=== PATIENT | male | born 1965 | race Caucasian/White ===

== ENCOUNTER → 2022-04-22 13:22 | Outpatient (BNVA) | payer MEDICAID, SELFPAY | PROVIDERS: Visit Provider Podiatrist Foot & Ankle Surgery | DX: M19.172 Post-traumatic osteoarthritis, left ankle and foot (principal); M62.81 Muscle weakness (generalized) | CPT/HCPCS: 73630 ==

== ENCOUNTER 2022-04-22 15:45 | Outpatient (CLI) | payer MEDICAID, SELFPAY | END 2022-04-22 15:46 | disposition home or self-care (01) | LOC: SPT 15:46 | PROVIDERS: Visit Provider Podiatrist Foot & Ankle Surgery | DX: Z46.89 Encounter for fitting and adjustment of other specified devices (principal); M19.071 Primary osteoarthritis, right ankle and foot | CPT/HCPCS: 97760; L1902 ==

== ENCOUNTER 2022-06-07 11:39 | Outpatient (CLI) | payer MEDICAID, SELFPAY ==
--- NOTE | 2022-06-07 12:01 | MR_ITS ---
WS: [id number] MRI LUMBAR SPINE NONCONTRAST HISTORY: LUMBAR PAIN COMPARISON: None available. TECHNIQUE: Sagittal and axial multisequence imaging is submitted. LEFT paracentral disc protrusion C6-7. Normal lumbar alignment with no compression fractures or marrow edema. Disc spaces and vertebral body heights are well-preserved. Conus terminates normally at L1-2 disc level. L1-L2: Mild annular disc bulging and facet arthritis. Mild bilateral foraminal stenosis. L2-L3: Small caliber central canal. There is mild central and RIGHT foraminal stenosis. Moderate LEFT foraminal stenosis. L3-L4: Mild annular disc bulge with a shallow RIGHT foraminal disc protrusion. Mild central and bilat eral subarticular recess stenosis. Mild to moderate bilateral foraminal stenosis. L4-L5: Small caliber thecal sac. Mild disc bulging and facet arthritis. Near complete effacement of f at in the foramina, moderate to severe LEFT and moderate RIGHT foraminal stenosis. L5-S1: Diffuse annular disc bulging with ligamentum flavum and facet arthritis. Moderate to severe bi lateral foraminal stenosis. Paravertebral soft tissues are normal. MR/MR lumbar spine wo con* [id number] IMPRESSION: 1. Diffuse small thecal sac. Suspect component of short pedicles contributing to the central stenosis. 2. Moderate to severe LEFT and moderate RIGHT foraminal stenosis at L4-5. Sign ificant encroachment upon the exiting L4 nerve roots. 3. Moderate to severe bilateral foraminal stenosis at L5-S1. Significant encro achment upon the exiting L5 nerve roots. 4. Mild central and RIGHT foraminal stenosis at L2-3 with moderate LEFT forami nal stenosis. 5. Multiple moderate bilateral foraminal stenosis at L3-4 with mild central an d bilateral subarticular recess stenosis. Additional shallow RIGHT foraminal di sc protrusion contributing to the stenosis.
== END 2022-06-07 11:40 | disposition home or self-care (01) ==
LOC: RAD 11:43
PROVIDERS: PCP Nurse Practitioner Family; Visit Provider Nurse Practitioner Family
DX: M48.061 Spinal stenosis, lumbar region without neurogenic claudication; M48.07 Spinal stenosis, lumbosacral region
CPT/HCPCS: 72148

== ENCOUNTER → 2022-07-02 15:57 | Outpatient (BNVA) | payer MEDICAID, SELFPAY | PROVIDERS: PCP Nurse Practitioner Family; Referring Provider Nurse Practitioner Family; Visit Provider Orthopaedic Surgery | DX: M48.062 Spinal stenosis, lumbar region with neurogenic claudication (principal); M47.812 Spondylosis without myelopathy or radiculopathy, cervical region | CPT/HCPCS: 72050 ==

== ENCOUNTER 2022-08-13 05:43 | Inpatient (IN) | payer MEDICAID, SELFPAY ==
[2022-08-13] VITALS (42 sets, daily range): BP systolic 108–195; BP diastolic 71–131; PULSE 85–111; RESP 13–26; TEMP 36.6–37.1; O2SAT 94–99; BMI 34.9
--- NOTE | 2022-08-13 05:49 | XRR_ITS ---
PROCEDURE INFORMATION: Exam: XR Chest Exam date and time: 08/13/2022 6:30 AM Age: 57 years old Clinical indication: Sternal or substernal pain; Additional info: Chest pain TECHNIQUE: Imaging protocol: Radiologic exam of the chest. Views: 1 view. COMPARISON: CR XR cervical spine 4-5V [id number] 07/02/2022 4:11 PM FINDINGS: Lungs: Mildly increased lung markings. No consolidation. Pleural spaces: Unremarkable. No pleural effusion. No pneumothorax. Heart/Mediastinum: Mildly enlarged heart. Bones/joints: Unremarkable. XR/XR chest 1V portable [id number] IMPRESSION: Nonspecific mildly increased lung markings, which can be seen with mild pulmonary congestion or pneumonia. Clinical correlation is recommended.
--- NOTE | 2022-08-13 05:53 | ECG_ITS ---
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 Measurements Intervals [place] Rate: 91 P: 64 IN: 157 QRS: -18 QRSD: 95 T: 43 QT: 343 QTc: 422 Interpretive Statements SINUS RHYTHM No previous ECG available for comparison Electronically Signed On 08-13-2022 16:51:50 CDT by Sandra Colmenares M.D. [id number]
[2022-08-13] MEDS: aspirin 81 mg Chew Tablet 324 MG PO (06:03)
--- NOTE | 2022-08-13 06:05 | W.ED.CHESTPA ---
HPI - Chest Pain General: Chief Complaint: ER Hold Stated Complaint: Chest Pains Time Seen by Provider: 08/13/22 05:44 Source: patient Mode of arrival: ambulatory History of Present Illness: 57-year-old male presents emergency room complaining of chest pain discomfort rating to his left shoulder has had for the last 3 to 4 days. He does not have any associated shortness of breath with it. He is not having any symptoms at this time earlier this morning he had some symptoms when he first woke up. He is not on anything anything that exacerbates or relieves his symptoms. Patient is a lifelong heavy smoker and has significant staining of facial hair around the mouth from smoking. He states he smokes 1 pack/day. He has no known history of coronary artery disease he has not previously had any bypass or cardiac evaluation. He does have some spondylosis with radiculopathy but he is not having any back pain or extremity pain at this time. MD complaint: chest pain Onset (ago): day(s) (3-4) Timing of current episode: episodic Onset: during rest Pain location: substernal and left chest Severity: mild Quality: tightness and aching Relieving factors: sitting upright Exacerbating factors: nothing Associated symptoms: Reports dyspnea; Deny no associated symptoms, abdominal pain, diaphoresis, fever(s), leg edema, nausea, palpitations, sense of impending doom, syncope, vomiting or other Review of Systems Const: Denies: fever(s), chills, fatigue, malaise or diaphoresis ENMT: Denies: throat pain, ear or mastoid pain, nasal discharge or nasal congestion Card: Reports: chest pain; Denies: palpitations or syncope Resp: Reports: dyspnea; Denies: productive cough, non-productive cough or wheezing GI: Denies: abdominal pain, nausea or vomiting : Denies: flank pain, dysuria, urinary frequency or urinary urgency Skin/Breast: Denies: rash or pruritus PFSH ED PFSH: Medical History Lumbar stenosis with neurogenic claudication Physical Exam Const: GENERAL APPEARANCE: cooperative and comfortable ORIENTATION/CONSCIOUSNESS: Yes awake, Yes oriented to person, Yes oriented to place and Yes oriented to time HENMT: COMMON NORMALS: normocephalic, atraumatic and hearing grossly normal bilaterally HEAD & SCALP: normocephalic and atraumatic Resp: COMMON NORMALS: normal respiratory effort, No retractions, No use of accessory muscles and clear to auscultation bilaterally AUSCULTATION: clear to auscultation bilaterally Cardio: COMMON NORMALS: regular rate, regular rhythm and No murmurs present (Cardio) RATE: regular rate RHYTHM: regular rhythm GI: COMMON NORMALS: Soft to palpation and No hepatosplenomegaly present AUSCULTATION: Yes normoactive bowel sounds PALPATION: Yes Soft to palpation, No Tenderness to palpation present (GI), No Guarding due to palpation present (GI) and Yes No hepatosplenomegaly present Extremity: COMMON NORMALS: normal to inspection, capillary refill normal, no clubbing, cyanosis or edema, no calf tenderness and no pedal edema Neuro: SENSORIUM/ORIENTATION: Yes oriented to person, Yes oriented to place and Yes oriented to time Skin: COMMON NORMALS: no rashes or lesions noted GENERAL SKIN EXAM: no rashes or lesions noted Course Vital Signs: Vital signs: Vital Signs Temperature 97.9 F 08/13/22 05:50 Pulse Rate 98 08/13/22 09:00 Respiratory Rate 19 H 08/13/22 09:00 Blood Pressure 134/99 08/13/22 09:00 Pulse Oximetry 97 08/13/22 09:00 Oxygen Delivery Me thod Room Air 08/13/22 06:37 MDM - Chest Pain Medical Decision Making Initial troponin elevated at 135. Patient is having occasional twinges of chest discomfort but nothing is sustained. He is hypertensive as well as started him on topical nitro and heparin drip. Based on his history and risk factors and his laboratory studies presumptively has an STEMI. He is not having any acute ST elevation. He is no discomfort at the time initially talked unknown when I went back to review his laboratory studies. Discussed with him the findings the importance of immediate follow-up will admit with hospitalist consult cardiology. Medical Records I reviewed the patient's medical records. Lab Data I reviewed the patient's lab results. 08/13/22 06:13 08/13/22 06:13 Radiology Impressions Chest X-Ray 08/13/22 05:49 IMPRESSION: Nonspecific mildly increased lung markings, which can be seen with mild pulmonary congestion or pneumonia. Clinical correlation is recommended. Laboratory Results WBC 6.6 10^3/uL (4.0-10.0) 08/13/22 06:13 RBC 4.76 10^6/uL (4.1-5.3) 08/13/22 06:13 Hgb 16.5 g/dL (11.7-16.6) 08/13/22 06:13 Hct 45.9 % (42.0-52.0) 08/13/22 06:13 MCV 96.4 fl (80-94) H 08/13/22 06:13 MCH 34.7 pg (28.0-34.0) H 08/13/22 06:13 MCHC 35.9 g/dL (30.0-36.0) 08/13/22 06:13 RDW 12.8 % (12.1-15.1) 08/13/22 06:13 Plt Count 228 10^3/cmm (130-400) 08/13/22 06:13 MPV 9.8 fL (7.4-10.4) 08/13/22 06:13 Neut % (Auto) 43.5 % 08/13/22 06:13 Lymph % (Auto) 39.8 % 08/13/22 06:13 [place] % (Auto) 11.6 % 08/13/22 06:13 Eos % (Auto) 4.3 % 08/13/22 06:13 Baso % (Auto) 0.5 % 08/13/22 06:13 Neut # (Auto) 2.85 10^3/uL (1.8-7.7) 08/13/22 06:13 Lymph # (Auto) 2.6 10^3/uL (0.8-4.8) 08/13/22 06:13 [place] # (Auto) 0.8 10^3/uL (0.2-0.9) 08/13/22 06:13 Eos # (Auto) 0.3 10^3/uL (0.0-0.8) 08/13/22 06:13 Baso # (Auto) 0.0 10^3/uL (0.0-0.1) 08/13/22 06:13 Nucleated RBC % (auto) 0 % 08/13/22 06:13 Nucleated RBCs # 0.0 /100WBC 08/13/22 06:13 PT 12.70 SECONDS (12.1-14.9) 08/13/22 06:13 INR 0.93 (0.8-1.2) 08/13/22 06:13 APTT 27.4 SECONDS (23.9-36.7) 08/13/22 06:13 Sodium 135 mmol/L (136-145) L 08/13/22 06:13 Potassium 4.5 mmol/L (3.5-5.1) 08/13/22 06:13 Chloride 98 mmol/L (98-107) 08/13/22 06:13 Carbon Dioxide 23 mmol/L (22-29) 08/13/22 06:13 Anion Gap 18.5 (5-19) 08/13/22 06:13 BUN 23 mg/dL (6-20) H 08/13/22 06:13 Creatinine 0.8 mg/dL (0.7-1.2) 08/13/22 06:13 GFR Calculation 100.0 mL/min (90-130) 08/13/22 06:13 Glucose 112 mg/dL (65-115) 08/13/22 06:13 Calculated Osmolality 284 mOsm/kg (285-295) L 08/13/22 06:13 Calcium 10.0 mg/dL (8.5-10.5) 08/13/22 06:13 Total Bilirubin 0.5 mg/dL (0.15-1.2) 08/13/22 06:13 AST 30 U/L (0-40) 08/13/22 06:13 ALT 31 U/L (0-41) 08/13/22 06:13 Alkaline Phosphatase 93 U/L (40-130) 08/13/22 06:13 Troponin T Baseline 135 ng/L (0-15) H* 08/13/22 06:13 NT-Pro-B Natriuret Pep 142 pg/mL (0-125) H 08/13/22 06:13 Total Protein 8.1 g/dL (6.6-8.7) 08/13/22 06:13 Albumin 4.6 g/dL (3.5-5.2) 08/13/22 06:13 Globulin 3.5 g/dL (1.3-4.6) 08/13/22 06:13 TSH 3.01 uIU/mL (0.27-4.20) 08/13/22 06:13 Discharge Plan Discharge Admit Provider: oClin Lopez Condition: Stable Coding Level of Care Code ED Associate Professor Of Automation for Toshia Wallace
[2022-08-13 06:21] LABS: Basophils % 0.5 %; Eosinophils # 0.3 10^3/uL (0.0-0.8); Eosinophils % 4.3 %; Hematocrit 45.9 % (42.0-52.0); Hemoglobin 16.5 g/dL (11.7-16.6); Lymphocytes # 2.6 10^3/uL (0.8-4.8); Lymphocytes % 39.8 %; Mean Corpuscular HGB Conc 35.9 g/dL (30.0-36.0); Mean Corpuscular Hemoglobin 34.7 pg (28.0-34.0); Mean Corpuscular Volume 96.4 fl (80-94); Mean Platelet Volume 9.8 fL (7.4-10.4); Monocytes # 0.8 10^3/uL (0.2-0.9); Monocytes % 11.6 %; Neutrophils # 2.85 10^3/uL (1.8-7.7); Neutrophils % 43.5 %; Nucleated Red Blood Cells % 0 %; Platelet Count 228 10^3/cmm (130-400); Red Blood Count 4.76 10^6/uL (4.1-5.3); Red Cell Distribution Width 12.8 % (12.1-15.1); White Blood Count 6.6 10^3/uL (4.0-10.0)
[2022-08-13 06:40] LABS: Alanine Aminotransferase 31 U/L (0-41); Albumin Level 4.6 g/dL (3.5-5.2); Alkaline Phosphatase 93 U/L (40-130); Anion Gap 18.5 (5-19); Aspartate Amino Transferase 30 U/L (0-40); Blood Urea Nitrogen 23 mg/dL (6-20); Carbon Dioxide 23 mmol/L (22-29); Chloride 98 mmol/L (98-107); Globulin 3.5 g/dL (1.3-4.6); Glucose 112 mg/dL (65-115); Osmolality Calculated 284 mOsm/kg (285-295); Potassium 4.5 mmol/L (3.5-5.1); Sodium 135 mmol/L (136-145); Total Bilirubin 0.5 mg/dL (0.15-1.2); Total Protein 8.1 g/dL (6.6-8.7)
[2022-08-13 06:42] LABS: Troponin(5th) Baseline 135 ng/L (0-15)
--- NOTE | 2022-08-13 06:43 | PC.NURSE ---
Notified Dr. Jennings of pt baseline trop of 135
[2022-08-13] MEDS: nitroglycerin 1 gm/inch oint Pkt 1 INCH TOPICAL (06:50)
[2022-08-13 07:01] LABS: INR 0.93 (0.8-1.2); Partial Thromboplastin Time 27.4 SECONDS (23.9-36.7)
[2022-08-13] MEDS: heparin 5,000 unit/mL INJ 1 mL IV (07:21)
[2022-08-13] MEDS: heparin drip 25,000 UNIT/500 ML PREMIX 27 UNIT IV (07:27)
--- NOTE | 2022-08-13 07:49 | ECG_ITS ---
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 Measurements Intervals [place] Rate: 91 P: 56 IN: 158 QRS: -15 QRSD: 94 T: 64 QT: 342 QTc: 422 Interpretive Statements SINUS RHYTHM POSSIBLE LEFT ATRIAL ENLARGEMENT [-0.1mV P-WAVE IN V1/V2] Compared to ECG 08/13/2022 05:53:07 No significant changes Electronically Signed On 08-13-2022 16:53:12 CDT by Sandra Colmenares M.D. [id number]
--- NOTE | 2022-08-13 08:28 | PC.PHAR ---
pt states he takes care of his own medications-pt states he was just taking lisinopril 20mg daily filled 07/15/22 30d/s then pt states the dr added a water pill with his lisinopril so pt states he has only been taking the lisinopril-hctz 20-25mg daily -[facility] filled flomax 0.4mg daily on 07/07/22 30d/s pt states not been taking for a month-[facility] filled mobic 15mg daily on 05/27/22 30d/s pt states not taking-
--- NOTE | 2022-08-13 08:42 | XACV_ITS ---
Exam Room: [facility] Ht: 165 cm Wt: 95 kg BSA: 2.13 m2 Gender: Male : 1965 Any Known Allergies: No known allergies Exam Priority: Routine Procedure(s): Procedure Description: Diagnostic procedure Procedure Description: PCI procedure Procedure Description: Drug Eluting Coronary Stent Procedure Description: PTCA Procedure Description: Coronary Angiography Diagnostic Cath Status: Urgent Diagnostic Findings * INDICATION: 57 year old male with past medical history of hypertension, smoking, heavy alcohol use presented to hospital with 3 to 4 days of on and off severe chest pain. Today it got worse. It was radiating to left arm. In the emergency room EKG did not show significant ischemic changes. Initial troponin was 135 which has trended down. * Left Anterior Descending has mild luminal irregularities. * Circumflex has no significant disease. * Left Main has no disease. * Proximal Right Coronary Artery: significant 80% stenosis, YULIANA: 3 flow. * Coronary angiography shows right dominance. PCI Status: Elective PCI Indication: NSTE - ACS Interventional Findings * Procedure Detail: We engaged RCA with JR4 guide catheter. IV heparin was administered to maintain ACT above 250 S. 0.014 run-through guidewire was used to cross the stenosis and was put in distal vessel. We predilated the stenosis with 3.0 x 12 mm semicompliant balloon. This was followed with placement of 3.5 x 18 mm resolute [place] drug-eluting stent. At this time final angiogram was performed that showed excellent stent expansion, no residual stenosis and YULIANA-3 flow. Guidewire and guide catheter were removed. 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 * Proximal Right Coronary Artery: 80% stenosis treated with a AB TREK 3.00X12 RX BALLOON, and MDT R ERIN 3.5X18 ASHLEY. 0% residual stenosis, YULIANA: 3 flow. Conclusions 1. Severe proximal RCA stenosis s/p successful revascularization with ASHLEY x1.. 2. Proximal Right Coronary Artery was treated with a Balloon, and Drug Eluting Stent. Recommendations * Dual antiplatelet therapy with aspirin and Plavix for at least 1 year. * High intensity statin therapy. * Outpatient cardiology follow-up in 2 weeks. Interventional RX Recommendation: PCI w/o planned CABG Diagnostic RX Recommendation: PCI w/o planned CABG Anticoagulation: Heparin Pressures Phase:Rest AO : 124 / 85 ( 97 ) @ 12:34:00 PM 122 / 95 ( 109 ) @ 12:40:00 PM 130 / 102 ( 117 ) @ 12:49:00 PM Clinical Evaluation EBL: 5mL-10mL Procedural Details Procedure Consent Obtained. Pre-Procedure Time Out. Identified patient by full name and date of as verbalized by the patient/guarantor. Does the consent match the physician's order: Yes. Accurate & Complete Informed Consent: Yes. Inpatient/Outpatient History & Physical on Chart: Yes. If H&P is completed, is and addenduem needed: No. Visualize and Verify Site with Patient/Guarantor: N/A. Relevant Radiology Images available: Yes. The risks, benefits, and alternatives of sedation and/or procedure were discussed by physician. The patient agrees to continue. Procedure started. [facility] Clinical Fraility Score: 4: Vulnerable. Wire Drawing Die Maker Indications: ACS > 24 hours/NSTEMI. Chest Pain Symptom Assessment: Typical Angina Symptoms. Cardiovascular Instability: No. Correct patient, site and procedure confirmed by cath team. Current diagnosis: NSTEMI. PERRLA. Strong, equal hand supervisor taping bilaterally. Lungs clear x 5 lobes. IV Site on Arrival: 18 gauge in the left anticubital. IV Fluids: 0.9% NaCl at KVO. 100 mL infused prior to curb and gutter laborer. Pre Procedural Pulses: bilateral dorsalis pedis was Doppled. Pre Procedural Pulses: bilateral posterior tibial was Doppled. Pre Procedural Pulses: bilateral radial was 2+. Oxygen started at 2liters/min via nasal canula. right groin was prepped with chloroprep then draped in the usual sterile fashion. right radial was prepped with chloroprep then draped in the usual sterile fashion. Physician notified. Baseline sample Acquired. HR: 95 BPM. Patient's spouse is in the curb and gutter laborer waiting room. Dr. Mustafa will update at the completion of the procedure. Equipment: 6F - Radial. Cardiac Cath Pack. ACOxThera Manifold Kit Model BT 2000. Heparinized Saline (2 units/mL), 1000 mL bag. Physician arrived. Physician scrubbed in. Immediate Pre-Procedure Time Out. Correct Patient: Yes; Correct Procedure: Yes; Correct Site: Yes; Correct Patient Position: Yes; Correct Supplies: Yes; Dried Flammable Prep: Yes; Blood Products Available: N/A. Lidocaine 1% infiltrated to the right radial. Arterial access obtained. ACT drawn. Results 192 seconds. Therapeutic limits - pre-heparin administration 90-150 seconds and monitoring heparin during a vascular procedure >250 seconds. A 5 nauruan TIG catheter in over the exchange J wire. Multiple views taken of left coronary artery. Catheter redirected to the RCA. Multiple views taken of right coronary artery. Catheter removed over the exchange J wire. 6 nauruan JR 4 guide catheter was inserted over the the exchange J wire. ACT drawn. Results 279 seconds. Therapeutic limits - pre-heparin administration 90-150 seconds and monitoring heparin during a vascular procedure >250 seconds. Runthrough guidewire was advanced through the guide catheter to lesion in the prox RCA. Inflation number : 1 A AB TREK 3.00X12 RX BALLOON was prepped and advanced across the Prox RCA , then inflated to 12 DIPTI for 0:17 seconds. Inflation number: 2 The AB TREK 3.00X12 RX BALLOON was reinflated across the Prox RCA, to 12 DIPTI for 0:11 seconds. Balloon out. Results checked. Inflation Number : 3 A ANGELO Busch ERIN 3.5X18 ASHLEY -Lot Number# [id number] was prepped and advanced across the Prox RCA. The stent was deployed at 12 DIPTI for 0:27 seconds. Exp 2024-07-23. Stent balloon out over wire. Results checked. Wire out. Results checked. Guide catheter out over the exchange J wire. Dr. Mustafa scrubbed out. A TR Band was successful obtaining hemostatsis at the Right Radial artery insertion site. TR band placed. Hemostasis obtained. Post Procedure: Pulses reassessed and unchanged. PERRLA. Strong, equal hand supervisor taping bilaterally. No VTE prophylaxis required. Medication's Wasted: Lidocaine 1% = 2 mL. Medication's Wasted: Nitro = 49.8 mg. Medication's Wasted: Heparin = 2000 units. Medication's Wasted: Other = Versed 1 mg. Medication's Wasted: Other = Fentanyl 50 mcg. Total IV fluids: 36 mL. PCI Indication: CAD (without ischemic symptoms). Post-op diagnosis: S/P PCI of the Proximal RCA. Complications: none. Estimated blood loss: 5mL-10mL. Responsiveness - Normal response to verbal stimuli; alert and oriented, PERRLA. Airway - Unaffected, no intervention required; spontaneous ventilation. Circulation: W/N/L, pulses unchanged. Nausea/Vomiting: No. Procedure completed. Patient transferred by wheelchair to CPRU. Vital chart was stopped. Access Site Site: Right Radial artery Sheath Size: 6 Fr Hemostasis Method: TR Band Hemostasis Success: Successful Procedure Medications Start: 11:29 AM Stop: 11: AM Medication: Versed Amount: 1 mg Route: I.V. Start: 11:29 AM Stop: 11: AM Medication: Fentanyl Amount: 50 mcg Route: I.V. Start: 11:31 AM Stop: 11: AM Medication: Nitrogylcerin Amount: 200 mcg Route: I.A. Start: 11:34 AM Stop: 11:34 AM Medication: Heparin Amount: 3000 units Route: I.V. Start: 11:44 AM Stop: 11:44 AM Medication: Heparin Amount: 1000 units Route: I.V. Start: 11:49 AM Stop: 11:49 AM Medication: Versed Amount: 1 mg Route: I.V. Start: 11:50 AM Stop: 11:50 AM Medication: Plavix Amount: 600 mg Route: P.O. I, the attending physician, have reviewed and verified all procedure medications. Yes, all medications given per verbal order History/Risk Factors Hypertension: Yes Dyslipidemia: No Peripheral Arterial Disease (PAD): No Myocardial Infarction (CT): No Obesity: No Renal Disease: No Tobacco Use: Current/Recent(w/in 1 year) Prior Interventions PCI: No CABG: No Valve Surgery: No Report Signatures Finalized by Christopher Mustafa MD on 08/18/2022 03:09 PM
--- NOTE | 2022-08-13 08:43 | USCV_ITS ---
Dequan Perez Age: 57 Gender: M : 1965 Exam Date: 08/13/2022 09:39 Ordering Phys: Colin Lopez MD Technologist: Damon Ross Exam Location: [facility] [place] Indication: chest pain BP: 145 / 97 HR: 102 Rhythm: Sinus Technical Quality: Adequate MEASUREMENTS (Male / Female) Normal Values 2D ECHO LV Diastolic Diameter PLAX 3.5 cm 4.2 - 5.9 / 3.9 - 5.3 cm LV Systolic Diameter PLAX 2.9 cm IVS Diastolic Thickness 1.6 cm 0.6 - 1.0 / 0.6 - 0.9 cm IVS Systolic Thickness 1.3 cm LVPW Diastolic Thickness 1.2 cm 0.6 - 1.0 / 0.6 - 0.9 cm LVPW Systolic Thickness 1.5 cm LVOT Diameter 2.0 cm LV Ejection Fraction 2D Teich 22.6 % LV Ejection Fraction MOD 2C 72.5 % LV Ejection Fraction 2C AL 72.3 % LA Diameter 3.8 cm IVC Diameter 2.0 cm M-MODE Aortic Annulus Diameter 3.4 cm LA Ao Ratio MM 1.1 MV E Point Septal Separation 0.9 cm DOPPLER AV Peak Velocity 147.0 cm/s LVOT Peak Velocity 100.0 cm/s AV Area Cont Eq vti 2.3 cm squared AV Area Cont Eq pk 2.1 cm squared MV Area PHT 5.0 cm squared Mitral E to A Ratio 0.5 MV E' Velocity 27.0 cm/s Mitral E to MV E' Ratio 8.9 Mitral E to LV E' Lateral Ratio 7.1 Mitral E to LV E' Septal Ratio 12.4 TR Peak Velocity 134.3 cm/s TR Peak Gradient 7.2 mmHg TR Mean Velocity 128.7 cm/s TR Mean Gradient 6.8 mmHg TR Velocity Time Integral 0.0 cm TV Peak E Velocity 72.0 cm/s Right Atrial Pressure 3.0 mmHg Pulmonary Artery Systolic Pressu 10.2 mmHg RV Acceleration Time 0.1 s FINDINGS Left Ventricle Left ventricle is normal in size. LV systolic function is normal with EF of 65 to 70%. No regional wall motion abnormalities are seen. Grade 1 diastolic dysfunction Right Ventricle Normal in size and function Right Atrium Normal in size Left Atrium Normal in size Mitral Valve Structurally normal mitral valve. Aortic Valve Structurally normal aortic valve. No significant stenosis or regurgitation seen. Tricuspid Valve Mild tricuspid regurgitation. Pulmonary artery systolic pressure is normal. Pulmonic Valve Not well-visualized Pericardium Normal Aorta Normal in size IVC Appears to be normal CONCLUSIONS LV systolic function is normal with EF of 65 to 70%. Grade 1 diastolic dysfunction. Mild tricuspid regurgitation No comparison studies are available Christopher Mustafa MD (Electronically Signed) Final Date: 13 August 2022 20:39 S
[2022-08-13] MEDS: pantoprazole 40 mg SDV IVP (09:01)
[2022-08-13] MEDS: LORazepam 2 mg/mL INJ 1 mL IVP (09:01)
[2022-08-13] MEDS: sodium chloride 0.9% 1,000 ML 75 ML IV (09:05)
[2022-08-13 09:06] LABS: Troponin 5 2HR 126.9 ng/L (0-15); Troponin 5 2HR Delta -8.1 ABS# (0-10)
[2022-08-13 09:23] LABS: NT Pro B Type Natriuretic Pept 142 pg/mL (0-125); Thyroid Stimulating Hormone 3.01 uIU/mL (0.27-4.20)
[2022-08-13] MEDS: folic acid 1 mg Tablet PO (09:54)
[2022-08-13] MEDS: multivitamin therapeutic Tablet 1 TAB PO (09:54)
[2022-08-13] MEDS: thiamine 100 mg Tablet PO (09:54)
--- NOTE | 2022-08-13 10:59 | P.CONIM_ITS ---
Providers/Reason For Consult Consulting Physician/Specialty*: Christopher Mustafa MD/ Cardiology Reason for Consult*: NSTEMI Requesting Physician: Dr Loaiza Attending Physician: Colin Lopez MD Primary Care Provider: Ernestina Braxton APN History of Present Illness History of Present Illness Dequan Perez is a 57 year old male with past medical history of hypertension, smoking, heavy alcohol use presented to hospital with 3 to 4 days of on and off severe chest pain. Today it got worse. It was radiating to left arm. In the emergency room EKG did not show significant ischemic changes. Initial troponin was 135 which has trended down. Review of Systems 2 General: Reports: 10 or more systems reviewed and unremarkable except in HPI and below Card: Reports: chest pain; Denies: swelling of feet/ankles Resp: Denies: dyspnea, productive cough or non-productive cough GI: Reports: nausea; Denies: abdominal pain, vomiting, hematochezia or melena Medications/Allergies Home Medications Medication Instructions Recorded Confirmed Last Taken Type ASO brace #1 ea 04/22/22 08/13/22 Unknown Rx albuterol sulfate 90 mcg/actuation 2 puff inhalation QID PRN 08/13/22 08/13/22 Unknown History aerosol inhaler (Ventolin HFA) Shortness Of Breath cyclobenzaprine 10 mg tablet 10 mg PO BEDTIME PRN Muscle Spasm 08/13/22 08/13/22 Unknown History lisinopril 20 1 tab PO DAILY 08/13/22 08/13/22 08/13/22 05:00 History mg-hydrochlorothiazide 25 mg tablet potassium gluconate 595 mg (99 mg) 595 mg PO DAILY 08/13/22 08/13/22 Unknown History tablet sildenafil 100 mg tablet 100 mg PO DAILY PRN Erectile 08/13/22 08/13/22 Unknown History Dysfunction Allergies Allergy/AdvReac Type Severity Reaction Status Date / Time No Known Allergies Allergy Verified 08/13/22 08:28 Current Medications Generic Name Dose Route Start Last Admin Trade Name Freq PRN Reason Stop Dose Admin Folic Acid 1 mg 08/13/22 09:00 08/13/22 09:54 Folic Acid 1 Mg Tablet PO 1 mg DAILY NELL Administration Heparin Sodium (Porcine) 0 unit 08/13/22 06:45 08/13/22 07:21 Heparin 5,000 Unit/Ml Inj 1 Ml IV 5,000 unit PRN PRN Administration Heparin weight-base protocol Protocol Heparin Sodium/Sodium Chloride 25,000 unit in 500 mls @ 0 mls/hr 08/13/22 06:45 08/13/22 07:27 Heparin Drip IV 14.17 unit/kg/hr .Q0M NELL 27 mls/hr Administration Protocol Per Protocol Sodium Chloride 1,000 mls @ 75 mls/hr 08/13/22 08:45 08/13/22 09:05 Sodium Chloride 0.9% IV 75 mls/hr .[id number] NELL Administration Multivitamins Therapeutic 1 tab 08/13/22 09:00 08/13/22 09:54 Multivitamin Therapeutic Tablet PO 1 tab DAILY NELL Administration Thiamine Mononitrate 100 mg 08/13/22 09:00 08/13/22 09:54 Thiamine 100 Mg Tablet PO 100 mg DAILY NELL Administration PFSH Acute PFSH: Medical History (Updated 08/14/22 @ 07:37 by Christopher Mustafa M.D) Alcohol use GERD (gastroesophageal reflux disease) Hypertension Lumbar stenosis with neurogenic claudication Tobacco dependency Surgical History History of ankle surgery Family History Other Cancer Social History Smoking and tobacco status: current every day smoker Alcohol intake: current Substance/Drug Use: never Vitals/I&O/Wt Last Vital Signs Temp 97.9 F 08/13/22 05:50 Pulse 98 08/13/22 09:00 Resp 19 H 08/13/22 09:00 BP 134/99 08/13/22 09:00 Pulse Ox 97 08/13/22 09:00 O2 Del Method Room Air 08/13/22 06:37 Weight last 48 hrs Weight 210 lb Physical Exam Narrative: GENERAL: Patient is alert, awake and oriented x3. [] NECK: No jugular vein distension. [] HEENT: No cyanosis. No icterus. No pallor. [] HEART: Regular S1 and S2. No murmur, rub or gallop. [] LUNGS: Clear to auscultate bilaterally. [] CENTRAL NERVOUS SYSTEM: Grossly nonfocal. [] EXTREMITIES: Lower extremities with no edema Data 08/14/22 06:33 08/14/22 06:33 A&P Assessment and plan (1) NSTEMI (non-ST elevated myocardial infarction): (2) Alcohol use: (3) Hypertension: Plan Patient has presented with typical chest pain and has troponin elevation. Findings consistent with a non-ST elevation OK. We will proceed with coronary angiogram with possible percutaneous coronary intervention. N.p.o. for now. Continue aspirin. Echocardiogram ordered. Thank you for involving us with care of this patient. We will continue to fol low. Please call with questions. Consult Attestations Medical Necessity Statement: Care expected to cross 2 midnights. Coding Level of Care Code Acute Code for [facility] Diagnoses NSTEMI (non-ST elevated myocardial infarction) I21.4 Alcohol use Z78.9 Hypertension I10
--- NOTE | 2022-08-13 11:18 | P.HP_ITS ---
Providers/Chief Complaint Admitting Physician: Colin Lopez MD Primary Care Provider: Ernestina Braxton APN Chief Complaint: Chest Pains History of Present Illness Dequan Perez is a 57 year old male who presented to the emergency department with complaints of chest discomfort. He reports this started 4 days ago, and on Friday it was quite severe. He believes it may have occurred for about 8 hours. It was pressure, radiating to his left shoulder. After that it seemed to get better, but then has come and gone some. Not necessarily related with exertion. Came back again last night, severe with radiation to left shoulder so decided to be evaluated in the emergency department. Some nausea, no vomiting. No blood in stool or black or tarry stool. Occasionally has reflux. Drinks quite a bit of alcohol, a pint a day with last alcohol intake yesterday. No recent fever, cough, other illness. 1 year ago he had some similar chest pain but did not get evaluated. Relates he has some radiculopathy and chronic neck pain on the left, but it is much different than the discomfort he had starting Friday. No prior history of any heart disease. He is curren tly chest pain-free. In the emergency department heparin drip was initiated, he received an aspirin, and nitroglycerin ointment. Review of Systems General: Reports: 10 or more systems reviewed and unremarkable except in HPI and below Card: Reports: chest pain; Denies: swelling of feet/ankles Resp: Denies: dyspnea, productive cough or non-productive cough GI: Reports: nausea; Denies: abdominal pain, vomiting, hematochezia or melena Medications/Allergies Home Medications Medication Instructions Recorded Confirmed Last Taken Type ASO brace #1 ea 04/22/22 08/13/22 Unknown Rx albuterol sulfate 90 mcg/actuation 2 puff inhalation QID PRN 08/13/22 08/13/22 Unknown History aerosol inhaler (Ventolin HFA) Shortness Of Breath cyclobenzaprine 10 mg tablet 10 mg PO BEDTIME PRN Muscle Spasm 08/13/22 08/13/22 Unknown History lisinopril 20 1 tab PO DAILY 08/13/22 08/13/22 08/13/22 05:00 History mg-hydrochlorothiazide 25 mg tablet potassium gluconate 595 mg (99 mg) 595 mg PO DAILY 08/13/22 08/13/22 Unknown History tablet sildenafil 100 mg tablet 100 mg PO DAILY PRN Erectile 08/13/22 08/13/22 Unknown History Dysfunction Allergies Allergy/AdvReac Type Severity Reaction Status Date / Time No Known Allergies Allergy Verified 08/13/22 08:28 PFSH Acute PFSH: Medical History (Updated 08/13/22 @ 11:34 by Colin Lopez MD) Alcohol use GERD (gastroesophageal reflux disease) Hypertension Lumbar stenosis with neurogenic claudication Tobacco dependency Surgical History (Updated 08/13/22 @ 11:21 by Colin Lopez MD) History of ankle surgery Family History Other Cancer Social History (Updated 08/13/22 @ 11:24 by Colin Lopez MD) Smoking and tobacco status: current every day smoker Alcohol intake: current Substance/Drug Use: never Vitals/I&O/Wt Last Vital Signs Temp 97.9 F 08/13/22 05:50 Pulse 98 08/13/22 09:00 Resp 19 H 08/13/22 09:00 BP 134/99 08/13/22 09:00 Pulse Ox 97 08/13/22 09:00 O2 Del Method Room Air 08/13/22 06:37 Weight last 48 hrs Weight 95.254 kg Physical Exam Narrative: General exam is no apparent distress, denies pain HEENT: Atraumatic normocephalic pupils equally round. Oropharynx clear. Neck is supple no lymphadenopathy thyromegaly Cardiovascular regular rate and rhythm without murmur, no S3 or S4 Lungs clear no wheezing or crackles. Diminished breath sounds are noted bilaterally Abdomen is soft nontender with positive bowel sounds. No obvious organomegaly. exams deferred Extremities no sinus clubbing edema, cap refill brisk Skin no rash Neuro no obvious focal deficits. Data 08/13/22 06:13 08/13/22 06:13 Other Labs: PT and PTT are normal. Troponin 135, repeat 126 BNP 142 Albumin, calcium, LFTs normal Chest x-ray no infiltrate by my read TSH normal EKG by my read demonstrates normal sinus rhythm, borderline left axis deviation, no significant ST or T wave changes. A&P Assessment and plan (1) Chest pain: Patient presents with chest discomfort. Troponin is elevated. This could represent a non-ST elevation myocardial infarction. Nitroglycerin ointment has been given by the emergency department. They have initiated aspirin. Check lipid profile in the morning Initiate statin Metoprolol p.o. will be started Heparin drip Cardiology consult Echocardiogram Serial troponins CBC, CMP in the morning Hydration (2) GERD (gastroesophageal reflux disease): He has history of reflux Initiate Protonix (3) Alcohol use: He has heavy alcohol use, 1 pint every day. He reports he gets shaky at times. Initiate CIWA protocol, 1 dose of Ativan now Hydration Plan Full codeMultiple other medical problems as outlined in past medical history Heparin will suffice for DVT prophylaxis Attestations Medical Necessity Statement*: Will need greater than 2 midnight stay for evaluation and treatment of chest discomfort with non-ST elevation myocardial infarction Diagnoses Chest pain R07.9 GERD (gastroesophageal reflux disease) K21.9 Alcohol use Z78.9 Time Spent (min) 49
--- NOTE | 2022-08-13 11:24 | W.PM.OPSUD ---
Surgery/Procedure H&P Update DATE OF PROCEDURE: August 13, 2022 DATE H&P PERFORMED: 08/13/22 H&P UPDATE INFORMATION: I have reviewed H&P completed within last 30 days, I have examined patient prior to procedure and No changes to prior documentation PREOP DIAGNOSIS: NSTEMI PRIMARY INDICATION FOR PROCEDURE: NSTEMI PLANNED PROCEDURE: Left heart cath with possible percutaneous coronary intervention PATIENT REASSESSED PRIOR TO SEDATION, WITH NO CHANGE NOTED: Yes PHYSICAL EXAM: alert, oriented x 3, clear to auscultation bilaterally and regular rate & rhythm AIRWAY EVAL/ANESTHESIA PLAN: normal airway, ASA III, Local Anesthesia, Risks, benefits & alternatives of sedation and/or procedure discussed and Patient agrees to continue as planned ADDITIONAL INFORMATION: Moderate sedation
--- NOTE | 2022-08-13 11:49 | ECG_ITS ---
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 Measurements Intervals [place] Rate: 97 P: 60 NM: 148 QRS: -22 QRSD: 93 T: 55 QT: 348 QTc: 444 Interpretive Statements SINUS RHYTHM BORDERLINE LEFT AXIS DEVIATION [QRS AXIS < -20] Compared to ECG 08/13/2022 08:04:21 No significant changes Electronically Signed On 08-13-2022 16:52:19 CDT by Sandra Colmenares M.D. [id number]
--- NOTE | 2022-08-13 12:45 | PC.NURSE ---
Patient arrived from clinical laboratory scientist at 1215pm via wheelchair. Report received from SERJIO Moore in clinical laboratory scientist. TR band with 16ml in place on wrist. Patient reports no pain and vitals are stable. at bedside with patient. Lunch tray ordered.
[2022-08-13 13:29] LABS: Troponin 5 6HR 127.8 ng/L (0-15); Troponin 5 6HR Delta -7.2 ng/L (0-12)
--- NOTE | 2022-08-13 15:02 | PC.NURSE ---
TR band off at 1500. No bleeding or hematoma noted.
[2022-08-13] MEDS: sodium chloride 0.9% 1,000 ML 100 ML IV (17:53)
[2022-08-13] MEDS: pantoprazole DR 40 mg Tablet PO (17:56)
[2022-08-13] MEDS: atorvastatin 40 mg Tablet 80 MG PO (20:34)
[2022-08-13] MEDS: metoprolol tartrate 25 mg Tablet PO (20:34)
[2022-08-14 03:17] VITALS: BP 163/89; PULSE 74; RESP 22; O2SAT 96
[2022-08-14 05:21] VITALS: PULSE 76
[2022-08-14 06:54] LABS: Basophils % 0.6 %; Eosinophils # 0.3 10^3/uL (0.0-0.8); Eosinophils % 5.4 %; Hematocrit 40.7 % (42.0-52.0); Hemoglobin 14.4 g/dL (11.7-16.6); Lymphocytes # 1.8 10^3/uL (0.8-4.8); Lymphocytes % 34.8 %; Mean Corpuscular HGB Conc 35.4 g/dL (30.0-36.0); Mean Corpuscular Hemoglobin 34.8 pg (28.0-34.0); Mean Corpuscular Volume 98.3 fl (80-94); Mean Platelet Volume 9.7 fL (7.4-10.4); Monocytes # 0.5 10^3/uL (0.2-0.9); Monocytes % 10.7 %; Neutrophils # 2.43 10^3/uL (1.8-7.7); Neutrophils % 48.3 %; Nucleated Red Blood Cells % 0 %; Platelet Count 193 10^3/cmm (130-400); Red Blood Count 4.14 10^6/uL (4.1-5.3); Red Cell Distribution Width 12.9 % (12.1-15.1)
[2022-08-14 07:11] LABS: Alanine Aminotransferase 26 U/L (0-41); Albumin Level 3.9 g/dL (3.5-5.2); Alkaline Phosphatase 81 U/L (40-130); Anion Gap 16.1 (5-19); Aspartate Amino Transferase 24 U/L (0-40); Blood Urea Nitrogen 17 mg/dL (6-20); Carbon Dioxide 21 mmol/L (22-29); Chloride 103 mmol/L (98-107); Chol HDL Ratio 4.03 mg/dL (1.0-5.00); Cholesterol 157 mg/dL (0-200); Glucose 103 mg/dL (65-115); HDL Cholesterol 39 mg/dL (60-100); LDL Cholesterol Calculated 75 mg/dL (50-129); LDL HDL Ratio 1.92 RATIO (0.00-3.22); Magnesium 1.8 mg/dL (1.7-2.3); Osmolality Calculated 284 mOsm/kg (285-295); Potassium 4.1 mmol/L (3.5-5.1); Sodium 136 mmol/L (136-145); Total Bilirubin 0.4 mg/dL (0.15-1.2); Total Protein 6.9 g/dL (6.6-8.7); Triglycerides 214 mg/dL (0-150)
--- NOTE | 2022-08-14 07:38 | PM.PN ---
Subjective Subjective: Patient underwent coronary angiogram yesterday and was found to have severe proximal RCA stenosis. He underwent successful revascularization of proximal RCA with 1 stent. He is doing well. Denies chest pain. Vitals/I&O/Wt Last Vital Signs Temp 98.7 F 08/13/22 23:48 Pulse 76 08/14/22 05:21 Resp 22 H 08/14/22 03:17 BP 163/89 08/14/22 03:17 Pulse Ox 96 08/14/22 03:17 O2 Del Method Room Air 08/14/22 03:17 08/13/22 08/14/22 08/14/22 22:59 06:59 14:59 Intake Total 1053.95 / 1053.95 1000 / 2053.95 Balance 1053.95 / 1053.95 1000 / 3.95 Weight last 48 hrs Weight 210 lb Physical Exam Narrative: GENERAL: Patient is alert, awake and oriented x3. [] NECK: No jugular vein distension. [] HEENT: No cyanosis. No icterus. No pallor. [] HEART: Regular S1 and S2. No murmur, rub or gallop. [] LUNGS: Clear to auscultate bilaterally. [] CENTRAL NERVOUS SYSTEM: Grossly nonfocal. [] EXTREMITIES: Lower extremities with no edema Data 08/14/22 06:33 08/14/22 06:33 A&P Assessment and plan (1) NSTEMI (non-ST elevated myocardial infarction): (2) Alcohol use: (3) Hypertension: Plan Patient had successful revascularization of proximal RCA with 1 stent yesterday. Continue aspirin and Plavix for at least 1 year. High intensity statin therapy. Metoprolol started. He can be started back on lisinopril?hydrochlorothiazide at home dose. Echo shows normal LV systolic function. Thank you for involving us with care of this patient. Patient is stable to be discharged from cardiology standpoint. Please call with questions. Attestations Medical Necessity Statement*: Care not expected to cross 2 midnights. Coding Level of Care Code Acute Code for [facility] Diagnoses NSTEMI (non-ST elevated myocardial infarction) I21.4 Alcohol use Z78.9 Hypertension I10
[2022-08-14 07:42] VITALS: BP 133/86; PULSE 72; RESP 20; O2SAT 97
[2022-08-14] MEDS: clopidogrel 75 mg Tablet PO (08:12)
[2022-08-14] MEDS: metoprolol tartrate 25 mg Tablet PO (08:12)
[2022-08-14] MEDS: folic acid 1 mg Tablet PO (08:12)
[2022-08-14] MEDS: lisinopril 10 mg Tablet PO (08:12)
[2022-08-14] MEDS: multivitamin therapeutic Tablet 1 TAB PO (08:12)
[2022-08-14] MEDS: aspirin 325 mg EC Tablet PO (08:12)
[2022-08-14] MEDS: pantoprazole DR 40 mg Tablet PO (08:12)
[2022-08-14] MEDS: thiamine 100 mg Tablet PO (08:12)
--- NOTE | 2022-08-14 08:24 | P.DS_ITS ---
Discharge Providers Date of Admission: 08/13/22 11:38 Date of Discharge: August 14, 2022 Attending Provider at Admission: Colin Lopez MD Attending Provider at Discharge: Colin Lopez MD Primary Care Provider: Ernestina Braxton APN Diagnoses at Discharge Discharge Diagnosis (1) NSTEMI (non-ST elevated myocardial infarction): Status: Acute (2) Alcohol use: Status: Acute (3) Hypertension: Status: Acute Reason for Visit Reason for Visit: Chest Pains Hospital Course Hospital Course Dequan is a 57-year-old white male who presented to the emergency department with complaints of chest discomfort on and off for 3 to 4 days. EKG was not diagnostic. Troponin was significantly elevated. There was concern for non-ST elevation myocardial infarction. He was placed on nitroglycerin ointment, given aspirin, and heparin drip was initiated. Beta-javier was ordered. Cardiology was consulted and they performed an angiogram on him, and an RCA lesion was n oted. This was treated with a drug-eluting stent. Plavix and statin. The following day, August 14 he was doing well without chest discomfort. The following day he was doing good without any chest discomfort. Laboratory was evaluated and there were no concerns. Angiogram site demonstrated no significant hematoma. He was given an opportunity ask questions, and it was thought he could be discharged home. He was instructed not to drink, or use tobacco and take all medicine as as indicated. Plavix was discussed in detail with the patient and the importance of this to prevent stent thrombosis. Physical Exam Narrative: General exam no distress Neck is supple Cardiovascular regular rhythm without murmur Lungs clear no wheezing or crackles Abdomen is soft with positive bowel sounds Extremities no cyanosis clubbing or edema, right wrist angiogram site without significant hematoma. Discharge Data Studies Completed and Pending Completed Studies During Hospitalization Category Date Time Status XR chest 1V portable [id number] Stat Exams 08/13/22 05:49 Completed CV. 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 Clinical correlation is recommended. Laboratory Results WBC 5.0 10^3/uL (4.0-10.0) 08/14/22 06:33 RBC 4.14 10^6/uL (4.1-5.3) 08/14/22 06:33 Hgb 14.4 g/dL (11.7-16.6) 08/14/22 06:33 Hct 40.7 % (42.0-52.0) L 08/14/22 06:33 MCV 98.3 fl (80-94) H 08/14/22 06:33 MCH 34.8 pg (28.0-34.0) H 08/14/22 06:33 MCHC 35.4 g/dL (30.0-36.0) 08/14/22 06:33 RDW 12.9 % (12.1-15.1) 08/14/22 06:33 Plt Count 193 10^3/cmm (130-400) 08/14/22 06:33 MPV 9.7 fL (7.4-10.4) 08/14/22 06:33 Neut % (Auto) 48.3 % 08/14/22 06:33 Lymph % (Auto) 34.8 % 08/14/22 06:33 Barton % (Auto) 10.7 % 08/14/22 06:33 Eos % (Auto) 5.4 % 08/14/22 06:33 Baso % (Auto) 0.6 % 08/14/22 06:33 Neut # (Auto) 2.43 10^3/uL (1.8-7.7) 08/14/22 06:33 Lymph # (Auto) 1.8 10^3/uL (0.8-4.8) 08/14/22 06:33 Barton # (Auto) 0.5 10^3/uL (0.2-0.9) 08/14/22 06:33 Eos # (Auto) 0.3 10^3/uL (0.0-0.8) 08/14/22 06:33 Baso # (Auto) 0.0 10^3/uL (0.0-0.1) 08/14/22 06:33 Nucleated RBC % (auto) 0 % 08/14/22 06:33 Nucleated RBCs # 0.0 /100WBC 08/14/22 06:33 PT 12.70 SECONDS (12.1-14.9) 08/13/22 06:13 INR 0.93 (0.8-1.2) 08/13/22 06:13 APTT 27.4 SECONDS (23.9-36.7) 08/13/22 06:13 Sodium 136 mmol/L (136-145) 08/14/22 06:33 Potassium 4.1 mmol/L (3.5-5.1) 08/14/22 06:33 Chloride 103 mmol/L (98-107) 08/14/22 06:33 Carbon Dioxide 21 mmol/L (22-29) L 08/14/22 06:33 Anion Gap 16.1 (5-19) 08/14/22 06:33 BUN 17 mg/dL (6-20) 08/14/22 06:33 Creatinine 0.8 mg/dL (0.7-1.2) 08/14/22 06:33 GFR Calculation 100.0 mL/min (90-130) 08/14/22 06:33 Glucose 103 mg/dL (65-115) 08/14/22 06:33 Calculated Osmolality 284 mOsm/kg (285-295) L 08/14/22 06:33 Calcium 9.0 mg/dL (8.5-10.5) 08/14/22 06:33 Magnesium 1.8 mg/dL (1.7-2.3) 08/14/22 06:33 Total Bilirubin 0.4 mg/dL (0.15-1.2) 08/14/22 06:33 AST 24 U/L (0-40) 08/14/22 06:33 ALT 26 U/L (0-41) 08/14/22 06:33 Alkaline Phosphatase 81 U/L (40-130) 08/14/22 06:33 Troponin T Baseline 135 ng/L (0-15) H* 08/13/22 06:13 Troponin T 120 Minute 126.9 ng/L (0-15) H 08/13/22 08:36 Delta Troponin T -8.1 ABS# (0-10) L 08/13/22 08:36 Troponin T Hi Sens 6Hr 127.8 ng/L (0-15) H 08/13/22 12:54 Troponin T Hi Sens 6Hr Delta -7.2 ng/L (0-12) L 08/13/22 12:54 NT-Pro-B Natriuret Pep 142 pg/mL (0-125) H 08/13/22 06:13 Total Protein 6.9 g/dL (6.6-8.7) 08/14/22 06:33 Albumin 3.9 g/dL (3.5-5.2) 08/14/22 06:33 Globulin 3.0 g/dL (1.3-4.6) 08/14/22 06:33 Triglycerides 214 mg/dL (0-150) H 08/14/22 06:33 Cholesterol 157 mg/dL (0-200) 08/14/22 06:33 LDL Cholesterol, Calc 75 mg/dL (50-129) 08/14/22 06:33 HDL Cholesterol 39 mg/dL (60-100) L 08/14/22 06:33 LDL/HDL Ratio 1.92 RATIO (0.00-3.22) 08/14/22 06:33 Cholesterol/HDL Ratio 4.03 mg/dL (1.0-5.00) 08/14/22 06:33 TSH 3.01 uIU/mL (0.27-4.20) 08/13/22 06:13 Vitals Last Vital Signs Temp 98.7 F 08/13/22 23:48 Pulse 72 08/14/22 07:42 Resp 20 H 08/14/22 07:42 BP 133/86 08/14/22 07:42 Pulse Ox 97 08/14/22 07:42 O2 Del Method Room Air 08/14/22 03:17 Discharge Plan Discharge Patient Disposition: Home Condition: Stable Prescriptions: New atorvastatin 40 mg Tablet 80 mg PO BEDTIME Qty: 30 0RF clopidogrel 75 mg Tablet 75 mg PO DAILY Qty: 30 11RF pantoprazole 40 mg Tablet,Delayed Release (Dr/Ec) 40 mg PO BID Qty: 60 0RF lisinopril 10 mg Tablet 10 mg PO DAILY Qty: 30 0RF metoprolol tartrate 25 mg Tablet 25 mg PO BID@0900,2100 Qty: 60 0RF aspirin 81 mg capsule 81 mg PO DAILY Qty: 30 0RF Continued (DME) ASO brace See Rx Instructions .Route .MEDSUPPLY Qty: 1 0RF Rx Instructions: As directed cyclobenzaprine 10 mg Tablet 10 mg PO BEDTIME PRN (Reason: Muscle Spasm) Ventolin HFA 90 mcg/actuation Hfa Aerosol Inhaler 2 puff INHALATION QID PRN (Reason: Shortness Of Breath) potassium gluconate 595 mg (99 mg) Tablet 595 mg PO DAILY Discontinued sildenafil 100 mg Tablet 100 mg PO DAILY PRN (Reason: Erectile Dysfunction) Rx Instructions: administer 30 minutes to 4 hours before activity lisinopril-hydrochlorothiazide 20-25 mg Tablet 1 tab PO DAILY Discharge Orders: Discharge Order (Routine); Ordered 08/14/22 Ordered By: Colin Lopez Referrals: Ernestina Braxton APN [Primary Care Provider] - 08/26/22 10:00 am (Please follow-up with Ernestina Braxton on August 26 at 10:00A.M. If you have any questions or need to reschedule. Please call ) Margaret Bradshaw FNP [Nurse Practitioner] - 08/22/22 9:30 am (Please follw-up with Margaret Bradshaw on August 22 at 9:30A.M. If you have any questions or need to reschedule. Please call ) Discharge Diet: Cardiac Discharge Activity: Increase activity as tolerated Patient Instructions: Metoprolol (By mouth) (Lopressor, Toprol XL), Lisinopril (By mouth) (Prinivil, Zestril), Aspirin (By mouth), Atorvastatin (By mouth) (Lipitor), Clopidogrel (By mouth) (Plavix), Pantoprazole (By mouth) (Protonix), Coronary Angioplasty (DC), DASH Eating Plan (DC), Hypertension (DC), Opioid Safety, Post Angiogram Home Care Instructions Activity Restrictions/Additional Instructions: Take all meds as prescribed. Stop alcohol and tobacco. [facility] follow up with cardiology and primary care provider. Discharge Attestations Time Spent in Discharge Care*: greater than 30 min Quality Metrics Clinical Quality Measures [ Acute Myocardial Infaction { Clinical Trial Participant: No; Contraindication to aspirin: None; Aspirin prescribed; Contraindication to statin: None; Statin prescribed; Contraindication to PCI: None; PCI performed;}] Coding Level of Care Code 07830 Total time (in minutes) for Discharge: 31 Diagnoses NSTEMI (non-ST elevated myocardial infarction) I21.4 Alcohol use Z78.9 Hypertension I10 Time Spent (min) 31
[2022-08-14 11:39] VITALS: BP 133/86; PULSE 72; RESP 20; O2SAT 97
== END 2022-08-14 11:40 | disposition home or self-care (01) | DRG 247 ==
LOC: ER 06:07 → ER IP 09:45 → CSU 11:38
PROVIDERS: Internal Medicine; Admitting Provider Internal Medicine; Emergency Provider Family Medicine; PCP Nurse Practitioner Family; Visit Provider Internal Medicine
PROC: 027034Z Dilation of Coronary Artery, One Artery with Drug-eluting Intraluminal Device, Percutaneous Approach (ICD-10-PCS; principal; 2022-08-13 11:00)
PROC: 027034Z Dilation of Coronary Artery, One Artery with Drug-eluting Intraluminal Device, Percutaneous Approach (ICD-10-PCS; 2022-08-13 11:00)
DX: I21.4 Non-ST elevation (NSTEMI) myocardial infarction (principal); I10 Essential (primary) hypertension; F17.200 Nicotine dependence, unspecified, uncomplicated; M48.062 Spinal stenosis, lumbar region with neurogenic claudication; F10.20 Alcohol dependence, uncomplicated; I25.10 Atherosclerotic heart disease of native coronary artery without angina pectoris; K21.9 Gastro-esophageal reflux disease without esophagitis
CPT/HCPCS: 36415; 71045; 80053; 80061; 83735; 83880; 84443; 84484; 85025; 85347; 85610; 85730; 93005; 93306; 93454; 96365; 96367; 96372; 96375; 96376; 99152; 99153; 99291; C1725; C1769; C1874; C1887; C1894; C9113; C9600; J1644; J2060; J2250; J3010; J3411; J3490; J7030; Q9967

== ENCOUNTER → 2022-08-22 10:58 | Outpatient (BNVA) | payer MEDICAID, SELFPAY | PROVIDERS: PCP Nurse Practitioner Family; Visit Provider Nurse Practitioner Family | DX: I10 Essential (primary) hypertension (principal); I25.10 Atherosclerotic heart disease of native coronary artery without angina pectoris | CPT/HCPCS: 36415; 80048 ==

== ENCOUNTER 2022-08-28 14:46 | Outpatient (CLI) | payer MEDICAID, SELFPAY ==
--- NOTE | 2022-08-28 15:15 | MR_ITS ---
WS: [id number] MRI CERVICAL SPINE NONCONTRAST HISTORY: pain/ poor balance COMPARISON: None available. Technique: Multiplanar, multisequence noncontrast imaging of the cervical spine. MRI examination is significantly compromised by motion artifact despite educating the patient. Straightening of the normal cervical lordosis. Mild narrowing of the disc spaces. Very slight anterio r wedging of C5 and C6. No marrow edema or acute fracture. Signal within the cervical cord is normal. Visualized posterior fossa is unremarkable. Craniocervical junction, C1 and C2 relationship, odontoid process and soft tissues are normal. C2-C3: Small central disc protrusion and mild facet arthritis. Very mild central and foraminal narrow ing. C3-C4: Diffuse annular disc bulging with osteophytic ridging. Central disc protrusion. Moderate facet joint arthritis. Narrowing of the cervical canal. Moderate to severe central and bilateral foraminal stenosis. C4-C5: Marked diffuse annular disc bulging with osteophytic ridging and facet arthritis. Severe centr al and bilateral foraminal stenosis. Cervical cord is being deformed. C5-C6: Diffuse annular disc bulging and osteophytic ridging. Encroachment upon the ventral thecal sac by disc and osteophyte. Marked facet arthritis. Severe central and bilateral foraminal stenosis. C6-C7: Osteophytic ridging with annular disc bulging. Asymmetric bulging and effacement of the CSF an d cord. Greater mass effect upon the LEFT cervical cord. There is markedly severe central and bilater al foraminal stenosis, LEFT greater than RIGHT. C7-T1: Annular disc bulging. Mild central stenosis. Moderate foraminal stenosis. Paraspinal soft tissue are normal. MR/MR cervical spin wo con* [id number] IMPRESSION: 1. Study is compromised by motion artifact. 2. Multilevel severe central and foraminal stenosis. Stenoses due to combinati on of disc disease, osteophytes and facet arthritis. 3. Severe central and bilateral foraminal stenosis at C4-5, C5-6 and C6-7, LEF T greater than RIGHT. 4. Moderate to severe central and bilateral foraminal stenosis at C3-4. 5. Mild central with moderate foraminal stenosis at C7-T1.
== END 2022-08-28 14:47 | disposition home or self-care (01) ==
PROVIDERS: PCP Nurse Practitioner Family; Visit Provider Orthopaedic Surgery
DX: M48.03 Spinal stenosis, cervicothoracic region (principal); M50.31 Other cervical disc degeneration, high cervical region; M50.21 Other cervical disc displacement, high cervical region; M47.812 Spondylosis without myelopathy or radiculopathy, cervical region; M25.78 Osteophyte, vertebrae
CPT/HCPCS: 72141

== ENCOUNTER 2022-11-19 11:33 | Outpatient (CLI) | payer MEDICAID, SELFPAY ==
[2022-11-19 12:48] LABS: Basophils % 0.4 %; Eosinophils # 0.3 10^3/uL (0.0-0.8); Eosinophils % 6.7 %; Hematocrit 43.1 % (37-53); Lymphocytes # 1.5 10^3/uL (0.8-4.8); Lymphocytes % 29.5 %; Mean Corpuscular HGB Conc 35.7 g/dL (30-55); Mean Corpuscular Hemoglobin 35.4 pg (27-33); Mean Corpuscular Volume 99.1 fl (82-101); Mean Platelet Volume 9.4 fL (7.4-10.4); Monocytes # 0.5 10^3/uL (0.2-0.9); Monocytes % 10.1 %; Neutrophils # 2.62 10^3/uL (1.8-7.7); Neutrophils % 51.9 %; Nucleated Red Blood Cells % 0 %; Platelet Count 266 10^3/cmm (157-399); Red Blood Count 4.35 10^6/uL (3.85-5.65); Red Cell Distribution Width 13.1 % (12.1-15.1); White Blood Count 5.05 10^3/uL (3.29-11.43)
[2022-11-19 12:57] LABS: Add Urine Culture? No; Add Urine Microscopic? YES; Bilirubin Urine Neg (Negative); Blood Urine Neg (Negative); Glucose Urine UA Norm (Normal); Ketones Urine 1+ (Negative); Leukocyte Esterase Urine Trace (Negative); Mucus Urine 1+ /hpf; Nitrate Urine Negative (Negative); Protein Urine Neg (Negative); RBC Urine 0-4 /hpf (0-2); Squamous Epithelial Cell Urine 0-4 /hpf (0-5); Sulfosalicylic Acid Urine Negative (Negative); Urine Appearance Clear (CLEAR); Urine Color Yellow (Yellow); Urobilinogen Urine Norm (Negative); WBC Urine 0-4 /hpf (0-5); pH Urine 8 (5-7)
[2022-11-19 13:00] LABS: Estmated Average Glucose 108; Hemoglobin A1C 5.4 % (4.0-6.0)
[2022-11-19 13:07] LABS: Alanine Aminotransferase 27 U/L (0-41); Albumin Level 4.6 g/dL (3.5-5.2); Alkaline Phosphatase 98 U/L (40-130); Aspartate Amino Transferase 28 U/L (0-40); Blood Urea Nitrogen 13 mg/dL (6-20); Calcium 8.9 mg/dL (8.5-10.5); Carbon Dioxide 25 mmol/L (22-29); Chloride 102 mmol/L (98-107); Glomerular Filtration Rate 139.4 mL/min (90-130); Glucose 105 mg/dL (65-115); Osmolality Calculated 282 mOsm/kg (285-295); Sodium 136 mmol/L (136-145); Total Bilirubin 0.5 mg/dL (0.15-1.2); Total Protein 7.6 g/dL (6.6-8.7)
== END 2022-11-19 11:34 | disposition home or self-care (01) ==
LOC: LAB 11:35
PROVIDERS: PCP Nurse Practitioner Family; Visit Provider Physician Assistant
DX: M48.062 Spinal stenosis, lumbar region with neurogenic claudication (principal); M62.81 Muscle weakness (generalized); Z79.899 Other long term (current) drug therapy
CPT/HCPCS: 36415; 80053; 81001; 83036; 85025

== ENCOUNTER → 2023-02-06 15:49 | Outpatient (BNVA) | payer OTHER, SELFPAY | PROVIDERS: PCP Nurse Practitioner Family; Referring Provider Internal Medicine; Visit Provider Internal Medicine Pulmonary Disease | DX: R06.09 Other forms of dyspnea (principal); F17.200 Nicotine dependence, unspecified, uncomplicated; R06.02 Shortness of breath | CPT/HCPCS: 36415; 82785; 85025; 86003 ==

== ENCOUNTER 2023-02-27 09:04 | Outpatient (CLI) | payer MEDICAID, SELFPAY ==
--- NOTE | 2023-02-27 10:30 | CT_ITS ---
WS: [id number] LDCT LUNG CANCER SCREENING TECHNIQUE: Noncontrast CT of the chest with coronal and sagittal reformatted images. CLINICAL INFORMATION: Cancer Screen COMPARISON: None. DLP: 96.79 mGy.cm DIvol: Mean CTDIvol: 2.10 (mGy) All CT scans at [facility] use at least one of these dose optimization techniques: automat ed exposure control; mA and/or kV adjustment per patient size (includes targeted exams where dose is matched to clinical indication); or iterative reconstruction. FINDINGS: Calcified granuloma LEFT lower lobe. Subsegmental atelectasis LEFT lower lobe. No suspiciou s pulmonary parenchymal opacities. Normal caliber thoracic aorta. No mediastinal or hilar lymphadenopathy. Coronary calcification. No ax illary lymphadenopathy. Cholelithiasis. Hepatomegaly. Adrenal glands are normal. Noncontrast spleen is normal. Slight increased density in the pancreatic tail may be due to normal lobulation however indeterminate on this noncontrast CT and underlying mass should be excluded. Recommend further evaluation with con trast-enhanced CT abdomen pelvis. Mild thoracic curve. IMPRESSION: Slight increased density in the pancreatic tail may be due to normal lobulation however underlying ma ss should be excluded. Recommend further evaluation with contrast-enhanced CT abdomen pelvis. In addition dense cholelithiasis. This can be further evaluated with ultrasound. CT/CT lung screening [id number] LUNG-RADS: 1S-Negative with Significant Findings FOLLOW UP: 12 Month: Continue annual screening with LDCT
== END 2023-02-27 09:05 | disposition home or self-care (01) ==
PROVIDERS: PCP Nurse Practitioner Family; Visit Provider Internal Medicine Pulmonary Disease
DX: F17.210 Nicotine dependence, cigarettes, uncomplicated (principal); R06.09 Other forms of dyspnea
CPT/HCPCS: 71271; 94010; 94618; 94726; 94729

== ENCOUNTER → 2023-04-09 10:45 | Outpatient (BNVA) | payer MEDICAID, SELFPAY | PROVIDERS: PCP Nurse Practitioner Family; Visit Provider Internal Medicine Pulmonary Disease | DX: Z12.2 Encounter for screening for malignant neoplasm of respiratory organs (principal); J44.89 Other specified chronic obstructive pulmonary disease; F17.210 Nicotine dependence, cigarettes, uncomplicated | CPT/HCPCS: 99214 ==

== ENCOUNTER 2023-05-08 16:44 | Outpatient (CLI) | payer MEDICAID, SELFPAY ==
--- NOTE | 2023-05-08 17:00 | CT_ITS ---
WS: [id number] CT ABDOMEN AND PELVIS WITH AND WITHOUT CONTRAST HISTORY: pancreas mass TECHNIQUE: Unenhanced 5 mm axial imaging first performed through the abdomen. Post contrast imaging t hrough the abdomen and pelvis. Oral contrast has not been provided. Sagittal and coronal reformats a re submitted. All CT scans at [facility] use at least one of these dose optimization techniqu es: automated exposure control; mA and/or kV adjustment per patient size (includes targeted exams whe re dose is matched to clinical indication); or iterative reconstruction. CONTRAST: Omnipaque 350; 95 mL IV. DLP: 2362.86 mGy.cm COMPARISON: CT 02/27/2023 Normal lung bases with a small cyst with pleural tagging at the LEFT lung base. Normal size heart. No hiatal hernia. Pancreas: Normal size pancreas Focal lobulated parents of the pancreatic tail. The area of lobulation is of slight increased density but it enhances the same as the remaining pancreas. There is no discrete well-formed mass. No hyperv ascular or hypovascular mass. No duct dilatation. Favor this is probably a normal pancreatic lobule w ith redundancy. Normal liver and pancreas. Cholelithiasis without acute cholecystitis. Several stones are present in the gallbladder. Normal aorta. No adrenal mass. Very slight thickening of the LEFT adrenal gland. Mil d atherosclerosis aorta. Normal enhancement of each kidney. No obstruction or mass. Normal GI tract. Normal appendix. There are a few scattered diverticula without acute diverticulitis. No free fluid or adenopathy. No free fluid in the pelvis. Negative urinary bladder. No destructive bone process. IMPRESSION: 1. Prominent lobulation involve the pancreatic tail. There is no mass. Very similar enhancement of t his lobulation to the remaining pancreas. No duct dilatation. 2. Cholelithiasis without acute cholecystitis. 3. Very minimal diverticular disease. No acute diverticulitis.
[2023-05-08] MEDS: iohexol 350 mg/mL 500 mL Btl (per mL) IV (17:13)
== END 2023-05-08 16:45 | disposition home or self-care (01) ==
LOC: RAD 16:44
PROVIDERS: PCP Nurse Practitioner Family; Visit Provider Surgery
DX: K86.89 Other specified diseases of pancreas (principal); K80.20 Calculus of gallbladder without cholecystitis without obstruction
CPT/HCPCS: 74178; Q9967

== ENCOUNTER 2023-05-19 13:22 | Outpatient (CLI) | payer MEDICAID, SELFPAY ==
--- NOTE | 2023-05-19 13:45 | USCV_ITS ---
Dequan Perez Age: 57 Gender: M : 1965 Exam Date: 05/19/2023 13:43 Ordering Phys: Margaret Bradshaw Technologist: EDGAR Exam Location: [facility] [place] Indication: worsening dyspnea on exertion, CAD BP: 118 / 88 HR: 0 Rhythm: Sinus Technical Quality: Adequate MEASUREMENTS (Male / Female) Normal Values 2D ECHO LV Diastolic Diameter PLAX 4.9 cm 4.2 - 5.9 / 3.9 - 5.3 cm IVS Diastolic Thickness 0.8 cm 0.6 - 1.0 / 0.6 - 0.9 cm IVS Systolic Thickness 2.1 cm LVPW Diastolic Thickness 1.4 cm 0.6 - 1.0 / 0.6 - 0.9 cm LVPW Systolic Thickness 1.5 cm LVOT Diameter 2.2 cm LV Ejection Fraction 2D Teich 64.2 % LV Ejection Fraction MOD 2C 54.5 % LV Ejection Fraction 2C AL 54.6 % LA Diameter 3.2 cm RA Systolic Volume 4C AL 15.5 ml RA Systolic Volume 4C MOD 14.8 ml Aorta at Sinotubular Diameter 4.0 cm IVC Diameter 2.4 cm M-MODE LA Ao Ratio MM 1.3 AV Cusp Separation MM 2.1 cm DOPPLER AV Peak Velocity 139.0 cm/s LVOT Peak Velocity 116.0 cm/s AV Area Cont Eq vti 3.4 cm squared AV Area Cont Eq pk 3.3 cm squared MV Peak Velocity 95.0 cm/s MV Area PHT 3.4 cm squared Mitral E to A Ratio 0.7 TV Peak Velocity 220.8 cm/s TR Peak Velocity 252.0 cm/s TR Peak Gradient 25.4 mmHg TR Mean Velocity 137.0 cm/s TR Mean Gradient 9.7 mmHg TR Velocity Time Integral 46.9 cm TV Peak E Velocity 84.0 cm/s Right Atrial Pressure 3.0 mmHg Pulmonary Artery Systolic Pressu 28.4 mmHg PV Peak Velocity 91.0 cm/s RV Ejection Time 0.4 s FINDINGS Left Ventricle Left ventricle is normal size. LV systolic function is normal with EF of 60 to 65%. No regional wall motion abnormalities. Right Ventricle Normal in size and function Right Atrium Normal in size Left Atrium Normal in size Mitral Valve Structurally normal mitral valve. Mild mitral regurgitation Aortic Valve Structurally normal aortic valve. No significant stenosis or regurgitation. Tricuspid Valve Mild tricuspid regurgitation. Pulmonary artery systolic pressure is normal. Pulmonic Valve Not well visualized Pericardium Normal Aorta Grossly normal IVC Not well visualized CONCLUSIONS Technically limited quality echocardiogram. LV systolic function is normal with EF of 60 to 65%. Mild mitral regurgitation. Mild tricuspid regurgitation. Ascending aorta is dilated with diameter of 3.7 cm. Compared to prior echocardiogram from 2022, no significant changes are seen Christopher Mustafa MD (Electronically Signed) Final Date: 01 June 2023 13:10 S
== END 2023-05-19 13:23 | disposition home or self-care (01) ==
LOC: RAD 13:22
PROVIDERS: PCP Nurse Practitioner Family; Visit Provider Nurse Practitioner Family
DX: I25.10 Atherosclerotic heart disease of native coronary artery without angina pectoris (principal); I10 Essential (primary) hypertension; I08.1 Rheumatic disorders of both mitral and tricuspid valves
CPT/HCPCS: 93306

== ENCOUNTER 2023-06-19 07:24 | Outpatient (CLI) | payer MEDICAID, SELFPAY ==
[2023-06-19 07:30] VITALS: BMI 38.2
--- NOTE | 2023-06-19 07:33 | ECG_ITS ---
[facility] Test Date: 2023-06-19 Pat Name: Dequan Perez Department: Room: Gender: Male Pourer Off: : 1965 Requested By: Margaret Bradshaw Order Number: [id number] Escobar MD: Christopher Mustafa M.D. Interpretive Statements NAME OF STUDY: LEXISCAN SESTAMIBI STRESS TEST INDICATION: [WORSENING SHORTNESS OF BREATH; DECREASED EXERCISE TOLERANCE] Procedure: At the baseline, the blood pressure was 163/92 mmHg with a heart rate of 70 bpm. The electrocardiogram showed normal sinus rhythm, normal axis with normal ST and T's. The Lexiscan was infused over a period of 20 seconds. A total of 0.4 mg of Lexiscan was infused. The stress phase was continued for a total of 5 minutes. Heart rate was at the end of stress phase was 78 bpm and a blood pressure of 148/91 mmHg. The EKG at the peak infusion revealed normal sinus rhythm with no significant ST-T wave changes. Sestamibi was injected 20 seconds after the Lexiscan infusion. Blood pressure at the end of recovery phase was 167/91 mmHg with a heart rate of 75 bpm. Conclusion: 1. Normal EKG response to Lexiscan infusion 2. No Lexiscan induced chest pain or cardiac arrhythmia. 3. Normal blood pressure and heart rate response. 4. Sestamibi/sestamibi perfusion scan pending; see separate report. Electronically Signed On 06-26-2023 12:46:30 CDT by Christopher Mustafa M.D. [id number]
--- NOTE | 2023-06-19 07:34 | NMCV_ITS ---
NM joey perf SPECT r/s* [id number] Dequan Perez Age: 57 Gender: M : 1965 Exam Date: 06/19/2023 08:17 Ordering Phys: Margaret Bradshaw Technologist: KELLIE Campa Exam Location: [facility] Indications: NSTEMI STRESS TEST [facility] IMAGE PROTOCOL Rest/Stress 1 Lexiscan Day Radiopharmaceutical Dose (mCi) Administration Site Administered by Rest: Tc-99m 10.5 IV KELLIE Alfaro Sestamibi Stress:Tc-99m 32.5 IV KELLIE Alfaro Sestamibi Rest: 19-Jun-2023 60 Discovery 630 Stress: 19-Jun-2023 30 Discovery 630 0.4mg Lexiscan. Images obtained in supine and prone position. SPECT RESULTS Technical Quality: Excellent Raw Data Analysis: Normal Image Corrections: No attenuation or motion correction applied Summed Stress Score: 3 Summed Rest Score: 3 Summed Difference Score: 1 PERFUSION FINDINGS There is a medium sized fixed perfusion defect noted in the apical wall. This was consistent with medium sized area of prior infarct in the left anterior descending artery territory. There is a medium sized area of reversible perfusion defect noted in apical inferior and inferior newton. This is consistent with medium sized area of ischemia in RCA territory. FUNCTIONAL RESULTS (calculated via Gated SPECT) Stress Image LV EF (%): 70 Stress EDV (mL):92 TID: 0.96 Stress ESV (mL):28 FUNCTIONAL FINDINGS: There is normal left ventricular systolic function. IMPRESSIONS 1. Medium sized area of prior infarct seen in the LAD territory. 2. Medium sized area of ischemia is seen in the RCA territory. Attenuation artifact can not be ruled out. Clinical correlation is required. 3. LV systolic function is normal Christopher Mustafa MD (Electronically Signed) Final Date: 21 June 2023 14:12 S
[2023-06-19] MEDS: regadenoson 0.4 Mg/5 ml Syringe 0.400000000000000022 MG IVP (08:58)
[2023-06-19 09:15] VITALS: BP 167/91; PULSE 77
== END 2023-06-19 07:25 | disposition home or self-care (01) ==
PROVIDERS: PCP Nurse Practitioner Family; Visit Provider Nurse Practitioner Family
DX: I21.4 Non-ST elevation (NSTEMI) myocardial infarction (principal)
CPT/HCPCS: 36415; 78452; 93017; 96374; A9500; J2785

== ENCOUNTER 2023-07-11 14:15 | Outpatient (CLI) | payer MEDICAID, SELFPAY ==
[2023-07-11 14:53] LABS: Basophils % 0.3 %; Eosinophils # 0.2 10^3/uL (0.0-0.8); Eosinophils % 3.6 %; Hematocrit 44.1 % (37-53); Lymphocytes # 1.6 10^3/uL (0.8-4.8); Lymphocytes % 25.6 %; Mean Corpuscular HGB Conc 36.1 g/dL (30-55); Mean Corpuscular Hemoglobin 35.2 pg (27-33); Mean Corpuscular Volume 97.6 fl (82-101); Mean Platelet Volume 9.7 fL (7.4-10.4); Monocytes # 0.6 10^3/uL (0.2-0.9); Monocytes % 10.2 %; Neutrophils # 3.66 10^3/uL (1.8-7.7); Neutrophils % 60.1 %; Nucleated Red Blood Cells % 0 %; Platelet Count 211 10^3/cmm (157-399); Red Blood Count 4.52 10^6/uL (3.85-5.65); Red Cell Distribution Width 13.2 % (12.1-15.1); White Blood Count 6.09 10^3/uL (3.29-11.43)
[2023-07-11 15:02] LABS: INR 0.96 (0.83-1.21); Prothrombin Time (Patient) 13.1 Seconds (12.0-15.1)
[2023-07-11 15:13] LABS: Blood Urea Nitrogen 15 mg/dL (6-20); Calcium 8.8 mg/dL (8.5-10.5); Carbon Dioxide 23 mmol/L (22-29); Chloride 102 mmol/L (98-107); Glomerular Filtration Rate 116.7 mL/min (90-130); Glucose 129 mg/dL (65-115); Osmolality Calculated 285 mOsm/kg (285-295); Sodium 136 mmol/L (136-145)
[2023-07-11 15:17] LABS: Anion Gap 15.4 (5-19); Potassium 4.4 mmol/L (3.5-5.1)
== END 2023-07-11 14:16 | disposition home or self-care (01) ==
LOC: LAB 14:17
PROVIDERS: PCP Nurse Practitioner Family; Visit Provider Nurse Practitioner Family
DX: I21.4 Non-ST elevation (NSTEMI) myocardial infarction (principal); I25.118 Atherosclerotic heart disease of native coronary artery with other forms of angina pectoris
CPT/HCPCS: 36415; 80048; 85025; 85610

== ENCOUNTER 2023-07-15 05:18 | Outpatient (CLI) | payer MEDICAID, SELFPAY ==
[2023-07-15] VITALS (16 sets, daily range): BP systolic 126–180; BP diastolic 84–116; PULSE 78–104; RESP 13–22; TEMP 37.5; O2SAT 91–96; BMI 38.2
--- NOTE | 2023-07-15 06:00 | XACV_ITS ---
Exam Room: 2 Ht: 165 cm Wt: 104 kg BSA: 2.24 m2 Gender: Male : 1965 Any Known Allergies: No known allergies Exam Priority: Routine Procedure(s): Procedure Description: Diagnostic procedure Procedure Description: Left Heart Catheterization Procedure Description: Left ventriculography Procedure Description: Coronary Angiography Diagnostic Cath Status: Elective Diagnostic Findings * INDICATION: Worsening dyspnea on exertion/chest pain/abnormal stress test. * No significant disease noted in the Left Main, Right, or Circumflex coronary arteries. Apical LAD has severe diffuse disease. RCA has patent prior proximal stent. Almost separate ostia for left anterior descending artery and left circumflex artery.. * Coronary angiography shows right dominance. Conclusions 1. No significant disease noted in the Left Main, Right, or Circumflex coronary arteries. Apical LAD has severe diffuse disease. RCA has patent prior proximal stent. Almost separate ostia for left anterior descending artery and left circumflex artery.. 2. Normal left ventricular systolic function. Ejection fraction of 55%. 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 Recommendations * Aggressive risk factor control. * Outpatient cardiology follow up in 2-4 weeks. 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 Pressures Phase:Rest AO : 108 / 93 ( 101 ) @ 9:23:00 AM 110 / 94 ( 102 ) @ 9:27:00 AM 146 / 90 ( 115 ) @ 9:32:00 AM 146 / 92 ( 115 ) @ 9:32:00 AM LV : 162 / -8 / 16 @ 9:30:00 AM 166 / -3 / 23 @ 9:31:00 AM 166 / -5 / 22 @ 9:32:00 AM Valves Phase:DefaultPhase AV : 20.0 @ 8:37:15 AM AV Mean Gradient: 24.0 @ 8:37:15 AM 24.0 @ 8:37:15 AM Clinical Evaluation EBL: 5mL-10mL Procedural Details Pre-Procedure Time Out. Identified patient by full name and date of as verbalized by the patient/guarantor. Does the consent match the physician's order: Yes. Accurate & Complete Informed Consent: Yes. Inpatient/Outpatient History & Physical on Chart: Yes. If H&P is completed, is and addenduem needed: No; If yes, is the addendum complete: N/A. Visualize and Verify Site with Patient/Guarantor: N/A. Relevant Radiology Images available: Yes. Pre-op teaching completed and patient verbalized understanding. The risks, benefits, and alternatives of sedation and/or procedure were discussed by physician. The patient agrees to continue. Procedure started. Physician arrived. Current Diagnosis : Chest Pain. [facility] Clinical Fraility Score: 5: Mildly Frail. 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 Chest Pain Symptom Assessment: Typical Angina Symptoms. Correct patient, site and procedure confirmed by cath team. Current diagnosis: Chest Pain. PERRLA. Strong, equal hand statistical secretary bilaterally. Lungs clear x 5 lobes. IV Site on Arrival: 20 gauge in the right forearm. IV Fluids: 0.9% NaCl at KVO. 0 mL infused prior to laboratory animal caretaker. Pre Procedural Pulses: bilateral dorsalis pedis was Doppled. Pre Procedural Pulses: bilateral posterior tibial was Doppled. Pre Procedural Pulses: bilateral radial was 2+. Oxygen started at 2liters/min via nasal canula. right groin was prepped with chloroprep then draped in the usual sterile fashion. right radial was prepped with chloroprep then draped in the usual sterile fashion. Baseline sample Acquired. HR: 94 BPM. Physician scrubbed in. Immediate Pre-Procedure Time Out. Correct Patient: Yes; Correct Procedure: Yes; Correct Site: Yes; Correct Patient Position: Yes; Correct Supplies: Yes; Dried Flammable Prep: Yes; Blood Products Available: N/A;. Lidocaine 1% infiltrated to the right radial. Arterial access obtained. A 5 tuvaluan TIG catheter in over wire. Multiple views taken of left coronary artery. Catheter redirected to the RCA. Multiple views taken of right coronary artery. Catheter removed over the exchange wire. A 5 tuvaluan Angled Pig catheter in over wire. EDP Sample taken: LV 162/-9,16; HR: 94 BPM; SpO2: 92%. LV gram performed in LOWE @ 10 mL/second for a total of 30 mL. EDP Sample taken: LV 166/-4,23; HR: 94 BPM; SpO2: 95%. Pullback taken: LV 166/-6,22; AO 146/90(115); Mean: 24mmHg, Peak to Peak: 20mmHg, SEP: 10sec/min; HR: 93 BPM; SpO2: 95%. Catheter removed over the exchange wire. A TR Band was successful obtaining hemostatsis at the Right Radial artery insertion site. Post Procedure: Pulses reassessed and unchanged. PERRLA. Strong, equal hand statistical secretary bilaterally. No VTE prophylaxis required. Medication's Wasted: Lidocaine 1% = 17 mL. Medication's Wasted: Heparin = 1000 units. Medication's Wasted: Nitro = 49.8 mg. Medication's Wasted: Other = Fentanyl 25 mg. Total IV fluids: 30 mL. Complications: None. Estimated blood loss: 5mL-10mL. Responsiveness - Normal response to verbal stimuli; alert and oriented, PERRLA. Airway - Unaffected, no intervention required; spontaneous ventilation. Circulation: W/N/L, pulses unchanged. Nausea/Vomiting: No. Procedure completed. Patient transferred by wheelchair to CPRU. Vital chart was stopped. Access Site Site: Right Radial artery Sheath Size: 6 Fr Hemostasis Method: TR Band Hemostasis Success: Successful Procedure Medications Start: 8:14 AM Stop: 8:14 AM Medication: Versed Amount: 1 mg Route: I.V. Start: 8:15 AM Stop: 8:15 AM Medication: Fentanyl Amount: 25 mcg Route: I.V. Start: 8:20 AM Stop: 8:20 AM Medication: Versed Amount: 1 mg Route: I.V. Start: 8:21 AM Stop: 8:21 AM Medication: Nitrogylcerin Amount: 200 mcg Route: I.A. Start: 8:22 AM Stop: 8:22 AM Medication: Fentanyl Amount: 25 mcg Route: I.V. Start: 8:22 AM Stop: 8:22 AM Medication: Heparin Amount: 5000 units Route: I.V. Start: 8:25 AM Stop: 8:25 AM Medication: Fentanyl Amount: 25 mcg Route: I.V. I, the attending physician, have reviewed and verified all procedure medications. Yes, all medications given per verbal order History/Risk Factors Hypertension: Yes Dyslipidemia: Yes Peripheral Arterial Disease (PAD): No Myocardial Infarction (DE): No Obesity: No Renal Disease: No Tobacco Use: Current/Recent(w/in 1 year) Prior Interventions PCI: Yes CABG: No Valve Surgery: No Date of PCI: 08/22/2022 Report Signatures Finalized by Christopher Mustafa MD on 07/15/2023 08:49 AM
[2023-07-15] MEDS: diphenhydrAMINE 50 mg Capsule PO (06:20)
--- NOTE | 2023-07-15 08:14 | P.HP_ITS ---
Same Day Surgery H&P Indication for Procedure/HPI DATE OF PROCEDURE: July 15, 2023 CHIEF COMPLAINT/INDICATIONFOR SURGICAL PROCEDURE: Worsening dyspnea on exertion/abnormal stress test PREOP DIAGNOSIS: Worsening dyspnea on exertion/abnormal stress test PLANNED PROCEDURE: Operation Date: 07/15/23 07:00 Proposed Procedures p Cardiac Catheterization(Left) - Christopher Mustafa M.D Possible percutaneous coronary intervention 57-year-old man with past medical history of hypertension, CAD, tobacco abuse with prior RCA stent has been having worsening dyspnea on exertion also having fatigue and chest pain. Had stress test that was abnormal. Plan for coronary angiogram with possible PCI. Medications/Allergies* Home Medications Medication Instructions Recorded Confirmed Type albuterol sulfate 90 mcg/actuation 2 puff inhalation QID PRN 08/13/22 07/14/23 History aerosol inhaler (Ventolin HFA) Shortness Of Breath potassium gluconate 595 mg (99 mg) 595 mg PO DAILY 08/13/22 07/14/23 History tablet amlodipine 5 mg tablet 5 mg PO DAILY 11/01/22 07/14/23 History Allergies/Adverse Reactions Allergy/AdvReac Type Severity Reaction Status Date / Time No Known Allergies Allergy Verified 07/15/23 06:51 Current Medications: Generic Name Dose Route Start Last Admin Trade Name Freq PRN Reason Stop Dose Admin Sodium Chloride 1,000 mls @ 50 mls/hr 07/15/23 06:00 07/15/23 06:49 Sodium Chloride 0.9% IV 07/16/23 01:59 Not Given .Q20H ONE Pertinent History/Comorbid Conditions* Medical History (Updated 05/15/23 @ 14:51 by ELKIN Barraza) Pancreatic mass Normal pancreatic tail parenchyma with lobulation. No neoplasm Psychiatric care Coronary artery disease Alcohol use Tobacco dependency Hypertension GERD (gastroesophageal reflux disease) Lumbar stenosis with neurogenic claudication Surgical History (Updated 08/13/22 @ 11:21 by Colin Lopez MD) History of ankle surgery Family History (Updated 08/13/22 @ 11:31 by Colin Lopez MD) Cancer Social History Smoking and tobacco/nicotine status: current every day tobacco/nicotine user cigarettes Packs smoked per day: 1 Years cigarettes smoked: 44 [ Other cigarette details: Started at age 13] Alcohol intake: current Substance/Drug Use: never Pertinent Exam Findings alert, oriented x 3, clear to auscultation bilaterally and regular rate & rhythm Conscious Sedation Assessment PATIENT ASSESSED PRIOR TO SEDATION, WITH NO CHANGE NOTED: Yes AIRWAY EVAL/ANESTHESIA PLAN: normal airway, ASA III, Local Anesthesia, Risks, benefits & alternatives of sedation and/or procedure discussed and Patient agrees to continue as planned ADDITIONAL INFORMATION: Moderate sedation Recommendations Surgery/Procedure today (Left heart cath with possible percutaneous coronary intervention) Coding Level of Care Code Acute Code for [facility]
--- NOTE | 2023-07-15 08:45 | SUR.PHASEII ---
Post Cath Note Received from laboratory courier. Status post cardiac catheterization via the right radial approach. TR BAND- 15 ML air to right wrist. Site is hemostatic. Verbal post cath instructions went over with the patient and family. They understood well. Call light in reach. Informed to call for needs. Vitals and assessments per flowsheet.
--- NOTE | 2023-07-15 08:51 | SUR.PHASEII ---
IV 0.9% NS 100 ML/HR POST CATH PER VERBAL ORDER FROM DR ESCOTO
--- NOTE | 2023-07-15 10:50 | SUR.PHASEII ---
TR BAND TR BAND DEFLATED. NO S/S OF HEMATOMA NOTED. NO BLEEDING NOTED.
== END 2023-07-15 12:18 | disposition home or self-care (01) ==
PROVIDERS: PCP Nurse Practitioner Family; Visit Provider Internal Medicine
DX: I25.10 Atherosclerotic heart disease of native coronary artery without angina pectoris (principal); I10 Essential (primary) hypertension; E78.5 Hyperlipidemia, unspecified; F17.210 Nicotine dependence, cigarettes, uncomplicated
CPT/HCPCS: 36415; 93458; 96374; 96375; 99152; 99153; C1769; C1887; C1894; J1644; J2250; J3010; J3490; J7030; Q0163; Q9967

== ENCOUNTER → 2023-07-28 14:00 | Outpatient (BNVA) | payer MEDICAID, SELFPAY | PROVIDERS: PCP Nurse Practitioner Family; Visit Provider Nurse Practitioner Family | DX: I10 Essential (primary) hypertension (principal) | CPT/HCPCS: 80048 ==

== ENCOUNTER → 2023-07-30 14:00 | Outpatient (BNVA) | payer MEDICAID, SELFPAY | PROVIDERS: PCP Nurse Practitioner Family; Visit Provider Nurse Practitioner | DX: F10.20 Alcohol dependence, uncomplicated (principal); F33.1 Major depressive disorder, recurrent, moderate | CPT/HCPCS: 80061; 83036 ==

== ENCOUNTER → 2023-09-29 17:17 | Outpatient (BNVA) | payer MEDICAID, SELFPAY ==
[2023-08-06 13:48] VITALS: BP 155/94; BMI 39.1
== END ==
PROVIDERS: PCP Nurse Practitioner Family; Visit Provider Internal Medicine Critical Care Medicine
DX: J96.01 Acute respiratory failure with hypoxia (principal); J44.89 Other specified chronic obstructive pulmonary disease
CPT/HCPCS: 71046

== ENCOUNTER 2023-10-03 08:46 | Outpatient (CLI) | payer MEDICAID, SELFPAY ==
[2023-08-06 13:48] VITALS: BP 155/94; BMI 39.1
--- NOTE | 2023-10-03 09:00 | CT_ITS ---
WS: [id number] CT CHEST ANGIOGRAPHY WITH REFORMATS HISTORY: acute on chronic respiratory failure TECHNIQUE: Contiguous axial images are obtained through the chest during arterial injection of intrav enous contrast. Images are reconstructed to evaluate the pulmonary arteries. MIP imaging also reviewe d. All CT scans at [facility] use at least one of these dose optimization techniques: automat ed exposure control; mA and/or kV adjustment per patient size (includes targeted exams where dose is matched to clinical indication); or iterative reconstruction. CONTRAST: Omnipaque 350; 100 mL IV. DLP: 706.71 mGy.cm COMPARISON: Lung CT 02/27/2023 Normal thoracic aorta. No aneurysm or dissection. No significant atherosclerotic plaque. Great vessel s arise normally. Normal size pulmonary artery. No pulmonary embolism. No RIGHT heart strain. Heart s ize is top normal. No pericardial or pleural effusions. Mild dependent changes at the lung bases with a focal scar at the LEFT lung base with pleural thicken ing which is similar to 02/27/2023. No mass or pneumonia. Small mediastinal and hilar lymph nodes. No lymphadenopathy. Hepatic steatosis. Several stones noted within the gallbladder lumen without adjacent inflammation. S mall, 10 mm LEFT adrenal mass similar to 05/08/2023 is better visualized on today's exam. Stable lobul ated appearance of the distal pancreatic tail which has been previously evaluated by CT. CT/CT angio chest PE protcl [id number] IMPRESSION: 1. Minimal atherosclerosis thoracic aorta. No aneurysm or dissection. 2. Normal pulmonary arteries. No pulmonary embolism. 3. Normal size pulmonary artery. 4. No enlarged mediastinal or hilar lymph nodes. 5. No mass or pneumonia. 6. Cholelithiasis without acute cholecystitis.
[2023-10-03] MEDS: iohexol 350 mg/mL 500 mL Btl (per mL) IV (09:26)
== END 2023-10-03 08:47 | disposition home or self-care (01) ==
LOC: RAD 08:47
PROVIDERS: PCP Nurse Practitioner Family; Visit Provider Internal Medicine Critical Care Medicine
DX: J96.00 Acute respiratory failure, unspecified whether with hypoxia or hypercapnia (principal); J44.89 Other specified chronic obstructive pulmonary disease; J43.2 Centrilobular emphysema; K80.20 Calculus of gallbladder without cholecystitis without obstruction; K76.0 Fatty (change of) liver, not elsewhere classified; K86.89 Other specified diseases of pancreas
CPT/HCPCS: 71275; Q9967

== ENCOUNTER 2024-01-07 08:56 | Day surgery (SDC) | payer MEDICAID, SELFPAY ==
[2023-08-06 13:48] VITALS: BP 155/94; BMI 39.1
--- OUTSIDE RECORDS SUMMARY | 2023-12-18 08:32 | XMS_ITS | Patient Health Record ---
Author Name Unknown Organization [facility] Address [address] [place] [address] Care Team Providers Care Dye Tub Operator Name Role Phone Ernestina Braxton Primary Care Provider ERNESTINA BRAXTON Unavailable Unavailable Allergies No Known Allergies Results Component Value Reference Range Notes T4 [id number] Reviewed date:03/18/2023 08:43:04 AM Interpretation: Performing Lab: Notes/Report: Diagnosis Description: Encounter for screening for other suspected endocrine disorder Free T4 0.92 0.89-1.76 NG/DL T3 Free [id number] Reviewed date:03/18/2023 08:43:10 AM Interpretation: Performing Lab: Notes/Report: Diagnosis Description: Encounter for screening for other suspected endocrine disorder Free T3 3.9 2.3-4.2 pg/mL Thyroid Stimulating Hormone (TSH) 37369 Reviewed date:04/08/2023 04:33:13 PM Interpretation: Performing Lab: Notes/Report: Diagnosis Description: Encounter for screening for other suspected endocrine disorder TSH 4.292 .358-3.740 MlU/ML Schedule Confirmation Reviewed date:04/03/2023 08:05:38 AM Interpretation: Performing Lab: Notes/Report: US Abdomen Complete US Abdomen Complete-[id number] Reviewed date:04/08/2023 04:33:45 PM Interpretation: Performing Lab: Notes/Report: See Below For Report US Abdomen Complete Diagnosis Description: Calculus of gallbladder without cholecystitis without obstruction Read See Below For Report Thyroid Stimulating Hormone (TSH) 94534 Reviewed date:07/31/2023 08:33:03 AM Interpretation: Performing Lab: Notes/Report: Diagnosis Description: Hypothyroidism, unspecified TSH 3.972 .358-3.740 MlU/ML Thyroid Stimulating Hormone (TSH) 60213 Reviewed date:09/10/2023 04:28:05 PM Interpretation: Performing Lab: Notes/Report: Diagnosis Description: Hypothyroidism, unspecified TSH 3.148 .358-3.740 MlU/ML PSA Medicare Screening--G010 3 Reviewed date:12/08/2023 03:11:43 PM Interpretation: Performing Lab: Notes/Report: Diagnosis Description: Encounter for screening for malignant neoplasm of prostate PSA 4.99 .00-4.00 NG/ML PSA concentra tions, regardless of the value, should not be interpreted as definitive evidence for the presence or absence of prostate cancer. Urinalysis--57307 Reviewed date:12/01/2023 01:19:40 PM Interpretation: Performing Lab: Notes/Report: Specific gravity UA 1.025 Urine Nitrite negative Color UA yellow Urine Blood negative Clarity UA clear Urine pH 6.5 Urine Glucose negative Urine Leukocyte negative Urine Protein negative Urine Bilirubin negative Urine Ketone negative Urobilinogen negative US Abdomen Complete-55721 Reviewed date:04/02/2023 03:10:27 PM Interpretation: Performing Lab: Notes/Report: dsv=[id number]&org=iSite hbf=[id number] &org=iSite Schedule Confirmation Reviewed date:04/02/2023 10:09:43 AM Interpretation: Performing Lab: Notes/Report: US Abdomen Complete Reason For Referral Reason calculus of gallblad irvin Diagnosis 1 Calculus of gallblad irvin without cholecystitis without obstruction (K80.20) Referral Organization [facility] Referring Provider First Name Ernestina Referring Provider Last Name [facility] Referring Provider Speciality Nurse Prac froylan Referred Provider Jasbir Ward Referred Provider Specialty General Surg los General Notes Myah Kelley 04/08 04:32:47 PM >faxed to [facility] General Surgery Referral Priority Routine Reason COPD 12/10-referra l was sent for the wrong patient according to patient. Closing referral. Diagnosis 1 COPD (chronic obstru ctive pulmonary disease) (J44.9) Referral Organization [facility] Referring Provider First Name Ernestina Referring Provider Last Name [facility] Referring Provider Speciality Nurse Prac froylan Referred Organization Pending Sale To [facility] Referred Provider Eliud Blount Referred Address [address] [place],[address],[place] Referred Provider Specialty Pulmonary Di seases General Notes Glenis Ibrahim 12/10 02:47:46 PM >12/10-referral was sent for the wrong patient according to patient. Closing referral. Referral Priority Routine Reason Cervical radiculopat hy Referring Provider First Name Ernestina Referring Provider Last Name [facility] Referring Provider Speciality Nurse Real galeano Referred Organization [facility] To [facility] [place] Referred Provider Estuardo Canela Referred Address [address] [place],[address],[place] Referral Priority Routine Reason COPD Diagnosis 1 COPD (chronic obstru ctive pulmonary disease) (J44.9) Referral Organization [facility] Referring Provider First Name Ernestina Referring Provider Last Name [facility] Referring Provider Speciality Nurse Real galeano Referred Provider ELIUD BLOUNT Referred Provider Specialty Pulmonary Di seases General Notes Myah Kelley 09/24 03:54:02 PM >sent Referral Priority Routine Reason Cervical radiculopat hy Diagnosis 1 Cervical radiculopat hy (M54.12) Referral Organization [facility] Referring Provider First Name Ernestina Referring Provider Last Name [facility] Referring Provider Pawel Nurse Real galeano Referred Provider Ariadna Griffith Referred Provider Specialty Neurosurgery General Notes Myah Kelley 10/05 11:33:49 AM >faxWarren meredith Amy 11/25/2023 03:46:57 PM >refaxed Referral Priority Routine Reason elevated psa Diagnosis 1 Elevated PSA (R97.20 ) Referral Organization [facility] Referring Provider First Name Ernestina Referring Provider Last Name [facility] Referring Provider ity Nurse Real galeano Referred Provider LILIANA GROSS Referred Provider Specialty Urology General Notes Myah Kelley 12/07 03:11:26 PM >faxed Referral Priority Routine Medications Medication SIG (Take, Route, Frequency, Duration) Notes Start Date End Date Status Aspirin 81 MG 1 tablet Orally Once a day Active Metoprolol Tartrate 25 MG TAKE 1 TABLET BY MOUTH TWICE DAILY WITH FOOD FOR 30 DAYS for 30 Active Lisinopril 20 MG Take 1 tablet by leslie th once daily for 30 Active Cyclobenzaprine HCl 10 MG Take 1 tablet by mouth twice daily as needed for 30 Active Clopidogrel Bisulfate 75 MG Take 1 tablet by mouth once daily for 30 days for 30 Active traZODone HCl 50 MG 1 tablet at bedtime as needed Orally Once a day Active Acetaminophen-Codeine 300-30 MG 1 tablet as needed Orally every 6 hrs 06/24/2023 Not-Taking Tamsulosin HCl 0.4 MG 1 capsule Orally O nce a day for 30 days 11/27/2023 05/25/2024 Active Naltrexone 380 MG as directed Intramuscular Active Lisinopril 10 MG 1 tablet Orally Once a day Not-Taking Atorvastatin Calcium 40 MG Take 1 tablet by mouth once daily for 30 Active amLODIPine Besylate 10 MG Take 1 tablet by mouth once daily for 30 days Active Nicotine 21-14-7 MG/24HR as directed Transdermal 09/23/2023 Active Pantoprazole Sodium 40 MG Take 1 tablet by mouth twice daily for 30 Active Trelegy Ellipta 200-62.5-25 MCG/ACT 1 puff Inhalation Once a day Active Levothyroxine Sodium 50 MCG TAKE 1 TABLET BY MOUTH IN THE MORNING ON AN EMPTY STOMACH for 30 Active Albuterol Sulfate HFA 108 (90 Base) MCG/ACT 2 puffs Inhalation four times a day prn for 30 days 05/23/2022 Active Social History Tobacco Use: Social History Observation Description Date Details (start date - stop date) Current Smoker NA - NA xTobacco Use/Smoking Question Answer Notes Are you a current smoker How often do you smoke cigarettes? every day Alcohol Screen (Audit-C) Question Answer Notes Did you have a drink contain ing alcohol in the past year? Yes How often did you have a dri nk containing alcohol in the past year? 4 or more times a week (4 points) Points 4 Interpretation Positive PHQ-9 Question Answer Notes Little interest or pleasure in doing things Not at all Feeling down, depressed, or hopeless Not at all Trouble falling or staying asleep, or sleeping t oo much Not at all Feeling tired or having little energy Not at all Poor appetite or overeating Not at all Feeling bad about yourself, or that you are a failure, or have let yourself or your family down Not at all Trouble concentrating on thi ngs, such as reading the newspaper or watching television Not at all Moving or speaking so slowly that other people could have noticed. Or the opposite ? 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) Active confirmed Problem 599795186 Sore throat (J02.9) Active confirmed Problem Arthritis (9593798) Arthritis (M19.90) Active confirmed Problem COPD - Chronic obstructive pulmonary disease (64505793) COPD (chronic obstructive pulmonary disease) (J44.9) Active confirmed Problem Hypothyroid (85153955) Hypothyroid (E03.9) Active confirmed Problem 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) ED (erectile dysfunction) (N52.9) Active confirmed Problem Benign prostatic hyperplasia (560895173) BPH (benign prostatic hyperplasia) (N40.0) Active confirmed Problem Acute non-ST segment elevation myocardial infarction (489276274) NSTEMI (non-ST elevated myocardial infarction) (I21.4) Active confirmed Problem Hypertension (82071264) Hypertension (I10) Active confirmed Problem Tobacco dependence (73187556) Tobacco dependence (F17.200) Active confirmed Problem Stented coronary artery (120747488) Stented coronary artery (Z95.5) Active confirmed Problem 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) Active confirmed Problem Cholelithiasis without obstruction (63939315) Cholelithiasis without cholecystitis (K80.20) Active confirmed Vital Signs Heart Rate 79 /min 11/27/2023 Temperature 97.7 degrees Fahrenheit 11/27/2023 Respiratory Rate 20 /min 11/27/2023 Height-cm 162.56 cm 11/27/2023 Oximetry 97 % 11/27/2023 Blood pressure diastolic 84 mm Hg 11/27/2023 Weight-kg 110.22 kg 11/27/2023 Height 64 in 11/27/2023 Blood pressure systolic 134 mm Hg 11/27/2023 Weight 243 lbs 11/27/2023 BMI 41.71 kg/m2 11/27/2023 Procedures Procedure Date Ordered Date Performed Result Body Sit e REMOVE IMPACTED EAR WAX UNI 02/12/2023 02/12/2023 N/A Encounters Encounter Location Date Provider Diagnosis [facility] [address] [place] [address] 03/18/2023 Ernestina Braxton [facility] [address] [place] [address] 04/08/2023 Ernestina Dilipjoe Calculus of gallbladder without cholecystitis without obstruction K80.20 [facility] [address] [place] [address] 08/27/2023 Ernestinakasia Braxton [facility] [address] [place] [address] 10/06/2023 Ernestina Braxton [facility] [address] [place] [address] 12/08/2023 Ernestina Braxton Elevated PSA R97.20 [facility] [address] [place] [address] 02/12/2023 Ernestina Braxton Impacted cerumen, right ear H61.21 ; Acute otitis media, right H66.91 and Nicotine dependence, cigarettes, uncomplicated F17.210 [facility] [address] [place] [address] 03/17/2023 Ernestina Braxton COPD (chronic obstructive pulmonary disease) J44.9 ; Cholelithiasis without cholecystitis K80.20 ; Pancreatic abnormality Q45.3 ; Tobacco dependence F17.200 and Screening for thyroid disorder Z13.29 [facility] [address] [place] [address] 06/24/2023 Ernestina Irais Cervical spine pain M54.2 and Shoulder pain, left M25.512 [facility] [address] [place] [address] 07/14/2023 Ernestina Braxton Hypothyroid E03.9 [facility] [address] [place] [address] 08/11/2023 Ernestina Braxton COPD (chronic obstructive pulmonary disease) J44.9 ; Dyspnea on exertion R06.09 and Hypothyroid E03.9 [facility] [address] [place] [address] 09/04/2023 Ernestina Braxton Hypothyroid E03.9 ; COPD (chronic obstructive pulmonary disease) J44.9 and Tobacco dependence F17.200 [facility] [address] [place] [address] 09/23/2023 Ernestina Braxton COPD (chronic obstructive pulmonary disease) J44.9 ; Tobacco dependence F17.200 and Cervical radiculopathy M54.12 [facility] [address] [place] [address] 11/27/2023 Ernestina Braxton BPH (benign prostati c hyperplasia) N40.0 and Screening PSA (prostate specific antigen) Z12.5 Assessments Encounter Date Diagnosis (ICD Code) Assessment Notes Treat ment Notes Treatment Clinical Notes 02/12/2023 Impacted cerumen, right ear (ICD-10 - H61.21) 02/12/2023 Acute otitis media, right (ICD-10 - H66.91) Increase fluids, take medication as directed. RTC if no improvement with treatment. 03/17/2023 COPD (chronic obstructive pulmonary disease) (ICD-10 - J44.9) 03/17/2023 Cholelithiasis without cholecystitis (ICD-10 - K80.20) 04/08/2023 Calculus of gallbladder without cholecystitis without obstruction (ICD-10 - K80.20) 06/24/2023 Shoulder pain, left (ICD-10 - M25.512) The treatment and management of our patient today has been a product of a working established patient/provider relationship for ongoing longitudinal primary care. 06/24/2023 Cervical spine pain (ICD-10 - M54.2) Will send for previous MRI done at [facility]. 07/14/2023 Hypothyroid (ICD-10 - E03.9) 08/11/2023 Dyspnea on exertion (ICD-10 - R06.09) 08/11/2023 COPD (chronic obstructive pulmonary disease) (ICD-10 - J44.9) I gave pt a month sample of Trelegy 200 mcg samples, will recheck in 1 month to see if it has helped with shortness of breath. 09/04/2023 COPD (chronic obstructive pulmonary disease) (ICD-10 - J44.9) Keep apt as scheduled with specialist. 09/04/2023 Hypothyroid (ICD-10 - E03.9) 09/23/2023 COPD (chronic obstructive pulmonary disease) (ICD-10 - J44.9) Keep apt as scheduled with specialist. 09/23/2023 Tobacco dependence (ICD-10 - F17.200) 11/27/2023 Screening PSA (prostate specific antigen) (ICD-10 - Z12.5) 11/27/2023 BPH (benign prostati c hyperplasia) (ICD-10 - N40.0) 12/08/2023 Elevated PSA (ICD-10 - R97.20) 09/04/2023 Tobacco dependence (ICD-10 - F17.200) 09/23/2023 Cervical radiculopathy (ICD-10 - M54.12) 08/11/2023 Hypothyroid (ICD-10 - E03.9) Recheck TSH in 1 month. 02/12/2023 Nicotine dependence, cigarettes, uncomplicated (ICD-10 - F17.210) 03/17/2023 Pancreatic abnormality (ICD-10 - Q45.3) 03/17/2023 Tobacco dependence (ICD-10 - F17.200) 03/17/2023 Screening for thyroi d disorder (ICD-10 - Z13.29) 03/17/2023 Other Venipuncture performed. Left arm. One attempt. Pt tolerated well, bleeding controlled with light dressing. 09/04/2023 Other Venipuncture performed. Right arm. One attempt. Pt tolerated well, bleeding controlled with light dressing.MYAH ROSA LPN Plan Of Treatment No Information Insurance Providers Payer Name Payer Address Payer Phone Subscriber Number Group Number Insured Name Patient Relationship to Insured Coverage Start Date Coverage End Date Home [facility] Plan [address] [place] [phone] [id number] Bob Perez Self - patient is the insured Medical (General) History Medical History History ICD Code hyperlipidemia hypertension history of myocardial infarction Surgical History Surgery Date(Month/Year) stents left ankle surgery Hospitalization History Reason Date(Month/Year) [facility] 08-14-22
--- OUTSIDE RECORDS SUMMARY | 2023-12-18 08:32 | XMS_ITS ---
Author Name Unknown Organization [facility] Address [address] [place] [address] Care Team Providers Care Medicinal Chemist Name Role Phone Irais Ernestina Primary Care Provider ERNESTINA BRAXTON Unavailable Unavailable Reason For Referral Reason elevated psa Diagnosis 1 Elevated PSA (R97.20 ) Referral Organization [facility] Referring Provider First Name Ernestina Referring Provider Last Name Irais Referring Provider Speciality Nurse Prac titioner Referred Provider LILIANA GROSS Referred Provider Specialty Urology General Notes Myah Kelley 12/07 03:11:26 PM >faxed Referral Priority Routine Encounters Encounter Location Date Provider Diagnosis [address] [address] 12/08/2023 Ernestina Irais Elevated PSA R97.20 Assessments Encounter Date Diagnosis (ICD Code) Assessment Notes Treatment Notes Treatment Clinical Notes 12/08/2023 Elevated PSA (ICD-10 - R97.20) Plan Of Treatment Referrals Referral Date Details 12/08/2023 12/08/2023, elevated psa, LILIANA GROSS Progress Notes * Bob PEREZDOB:1965 (58 yo M)Acc No.[id number]:12/08/2023 Patient:?SHELBY, Bob :1965???Age:58 Y???Sex:Male Address:[address] [place] [id number] Subjective: * Chief Complaints: * ??? * Medical History:? * Surgical History:? * Hospitalization/Major Diagno stic Procedure:? * Medications:? Objective: * Vitals:? * Physical Examination:? Assessment: * Assessment: 1.?Elevated PSA - R97.20 (Pr imary)??? Plan: * Treatment: * Procedure Codes:? * true * Date:? Generated for Shauna montes/Adrián/eTransmitting on:?12/18/2023 08:31 AM CDT Consultation Request Notes Referral Date Referring Provider Referred Provider Not es 12/08/2023 Ernestina Braxton DANIEL elevated psa
--- OUTSIDE RECORDS SUMMARY | 2023-12-18 08:32 | XMS_ITS ---
Author Name Unknown Organization [facility] Address [address] [place] [address] Care Team Providers Care Telephone Operator Receptionist Name Role Phone Ernestina Braxton Primary Care Provider ERNESTINA BRAXTON Unavailable Unavailable REASON FOR VISIT Needs referral Encounters Encounter Location Date Provider Diagnosis [facility] [address] [address] 10/06/2023 Ernestina Braxton Plan Of Treatment No Information Progress Notes * Bob PEREZDOB:1965 (58 yo M)Acc No.[id number]:10/06/2023 Patient:?Bob PEREZ :1965???Age:58 Y???Sex:Male Address:[address] [place] [phone] * true * Date:? Generated for Paweli jyoti/Adrián/eTransmitting on:?12/18/2023 08:31 AM CDT
--- OUTSIDE RECORDS SUMMARY | 2023-12-18 08:32 | XMS_ITS ---
Author Name Unknown Organization [facility] Address [address] [place] [address] Care Team Providers Care Webmethods Consultant Name Role Phone Ernestina Braxton Primary Care Provider ERNESTINA BRAXTON Unavailable Unavailable Allergies No Known Allergies Results Component Value Reference Range Notes Urinalysis--94431 Reviewed date:12/01/2023 01:19:40 PM Interpretation: Performing Lab: Notes/Report: Specific gravity UA 1.025 Urine Nitrite negative Color UA yellow Urine Blood negative Clarity UA clear Urine pH 6.5 Urine Glucose negative Urine Leukocyte negative Urine Protein negative Urine Bilirubin negative Urine Ketone negative Urobilinogen negative PSA Medicare Screening--G010 3 Reviewed date:12/08/2023 03:11:43 PM Interpretation: Performing Lab: Notes/Report: Diagnosis Description: Encounter for screening for malignant neoplasm of prostate PSA 4.99 .00-4.00 NG/ML PSA concentra tions, regardless of the value, should not be interpreted as definitive evidence for the presence or absence of prostate cancer. REASON FOR VISIT Discuss issues Medications Medication SIG (Take, Route, Frequency, Duration) Notes Start Date End Date Status Cyclobenzaprine HCl 10 MG Take 1 tablet by mouth twice daily as needed for 30 Active Clopidogrel Bisulfate 75 MG Take 1 tablet by mouth once daily for 30 days for 30 Active Acetaminophen-Codeine 300-30 MG 1 tablet as needed Orally every 6 hrs 06/24/2023 Not-Taking Lisinopril 10 MG 1 tablet Orally Once a day Not-Taking Levothyroxine Sodium 50 MCG TAKE 1 TABLET BY MOUTH IN THE MORNING ON AN EMPTY STOMACH for 30 Active Atorvastatin Calcium 40 MG Take 1 tablet by mouth once daily for 30 Active amLODIPine Besylate 10 MG Take 1 tablet by mouth once daily for 30 days Active Nicotine 21-14-7 MG/24HR as directed Transdermal 09/23/2023 Active Aspirin 81 MG 1 tablet Orally Once a day Active Metoprolol Tartrate 25 MG TAKE 1 TABLET BY MOUTH TWICE DAILY WITH FOOD FOR 30 DAYS for 30 Active Pantoprazole Sodium 40 MG Take 1 tablet by mouth twice daily for 30 Active traZODone HCl 50 MG 1 tablet at bedtime as needed Orally Once a day Active Tamsulosin HCl 0.4 MG 1 capsule Orally O nce a day for 30 days 11/27/2023 05/25/2024 Active Naltrexone 380 MG as directed Intramuscular Active Albuterol Sulfate HFA 108 (90 Base) MCG/ACT 2 puffs Inhalation four times a day prn for 30 days 05/23/2022 Active Lisinopril 20 MG Take 1 tablet by leslie th once daily for 30 Active Trelegy Ellipta 200-62.5-25 MCG/ACT 1 puff Inhalation Once a day Active Social History Tobacco Use: Social History Observation Description Date Details (start date - stop date) Current Smoker NA - NA xTobacco Use/Smoking Question Answer Notes Are you a current smoker How often do you smoke cigarettes? every day Problems Problem Type SNOMED Code ICD Code Onset Dates Problem Status W/U Status Risk Notes Problem Benign prostatic hyperplasia (657279732) BPH (benign prostatic hyperplasia) (N40.0) Active confirmed Vital Signs Temperature 97.7 degrees Fahrenheit 11/27/19 24 Blood pressure systolic 134 mm Hg 11/27/19 24 Blood pressure diastolic 84 mm Hg 024 Heart Rate 79 /min 11/27/2023 Respiratory Rate 20 /min 11/27/2023 Height 64 in 11/27/2023 Weight 243 lbs 11/27/2023 BMI 41.71 kg/m2 11/27/2023 Oximetry 97 % 11/27/2023 Height-cm 162.56 cm 11/27/2023 Weight-kg 110.22 kg 11/27/2023 Encounters Encounter Location Date Provider Diagnosis [facility] [address] [id number] 11/27/2023 Ernestina Braxton BPH (benign prostatic hyperplasia) N40.0 and Screening PSA (prostate specific antigen) Z12.5 Assessments Encounter Date Diagnosis (ICD Code) Assessment Notes Treatment Notes Treatment Clinical Notes 11/27/2023 BPH (benign prostatic hyperplasia) (ICD-10 - N40.0) 11/27/2023 Screening PSA (prostate specific antigen) (ICD-10 - Z12.5) Plan Of Treatment Medication Medication Name Sig Start Date Stop Date Notes Tamsulosin HCl 0.4 MG 1 capsule Orally O nce a day for 30 days 11/27/2023 05/25/2024 Next Appt Details Follow Up: 3 Months, Reason: Progress Notes * Bob PEREZDOB:1965 (58 yo M)Acc No.[id number]:11/27/2023 Progress Notes Patient:?Bob PEREZ Provider:?Ernestina Braxton APRN :1965???Age:58 Y???Sex:Male Stan e:11/27/2023 Address:[address] [place], [place] [id number] Check In:10:19 AM CSTCheck 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 Here today with complaints of urinary leaking, having to get up at night to urinate. He has taken Flomax in past with good results but ran out a few months ago. Denies dysuria, flank pain, fever. * ROS:?General - Multi System:?Constitutional?Denies fever, chills, body aches, change in appetite, or problems with sleep.?Cardiovascular?Denies any recent chest pain, irregular heart beats, syncope, or shortness of breath.?Respiratory?Denies any shortness of breath, cough, or hemoptysis..?Gastrointestinal?Denies?abdominal pain,?recent change in bowel habits.?Genitourinary?Reportsnocturia, leaking urine. Denies dysuria, hematuria.?Musculoskeletal?Denies any joint pain or swelling, no recent trauma..?Integumentary?Denies any rashes, bruising, or skin changes..?Psychiatric?Denies depression, anxiety, or suicidal thoughts/actions..? * Medical History:? * Surgical History:?left ankle surgery stents * Hospitalization/Major Diagno stic Procedure:?[facility] 08-14-22 * Family History:?Father: dece ased.?Mother: , lung cancer.? * Social History:?Tobacco Use:?xTobacco Use/Smoking?Are you a?current smoker ?How often do you smoke cigarettes??every day ???04-15-22 PHQ9 08/11/23 PHQ9. * Medications:?TakingTrelegy E llipta 200-62.5-25 MCG/ACT Aerosol Powder Breath Activated 1 puff Inhalation Once a day Lisinopril 20 MG Tablet Take 1 tablet by mouth once daily Pantoprazole Sodium 40 MG Tablet Delayed Release Take 1 tablet by mouth twice daily traZODone HCl 50 MG Tablet 1 tablet at bedtime as needed Orally Once a day Naltrexone 380 MG Suspension Reconstituted as directed Intramuscular Albuterol Sulfate HFA 108 (90 Base) MCG/ACT Aerosol Solution 2 puffs Inhalation four times a day prn Aspirin 81 MG Tablet Chewable 1 tablet Orally Once a day Metoprolol Tartrate 25 MG Tablet TAKE 1 TABLET BY MOUTH TWICE DAILY WITH FOOD FOR 30 DAYS Atorvastatin Calcium 40 MG Tablet Take 1 tablet by mouth once daily amLODIPine Besylate 10 MG Tablet Take 1 tablet by mouth once daily Nicotine 21-14-7 MG/24HR Kit as directed Transdermal Levothyroxine Sodium 50 MCG Tablet TAKE 1 TABLET BY MOUTH IN THE MORNING ON AN EMPTY STOMACH Cyclobenzaprine HCl 10 MG Tablet Take 1 tablet by mouth twice daily as needed Clopidogrel Bisulfate 75 MG Tablet Take 1 tablet by mouth once daily for 30 days Taking Trelegy Ellipta 200-62.5-25 MCG/ACT Aerosol Powder Breath Activated 1 puff Inhalation Once a day Taking Lisinopril 20 MG Tablet Take 1 tablet by mouth once daily Taking Pantoprazole Sodium 40 MG Tablet Delayed Release Take 1 tablet by mouth twice daily Taking traZODone HCl 50 MG Tablet 1 tablet at bedtime as needed Orally Once a day Taking Naltrexone 380 MG Suspension Reconstituted as directed Intramuscular Taking Albuterol Sulfate HFA 108 (90 Base) MCG/ACT Aerosol Solution 2 puffs Inhalation four times a day prn Taking Aspirin 81 MG Tablet Chewable 1 tablet Orally Once a day Taking Metoprolol Tartrate 25 MG Tablet TAKE 1 TABLET BY MOUTH TWICE DAILY WITH FOOD FOR 30 DAYS Taking Atorvastatin Calcium 40 MG Tablet Take 1 tablet by mouth once daily Taking amLODIPine Besylate 10 MG Tablet Take 1 tablet by mouth once daily Taking Nicotine 21-14-7 MG/24HR Kit as directed Transdermal Taking Levothyroxine Sodium 50 MCG Tablet TAKE 1 TABLET BY MOUTH IN THE MORNING ON AN EMPTY STOMACH Taking Cyclobenzaprine HCl 10 MG Tablet Take 1 tablet by mouth twice daily as needed Taking Clopidogrel Bisulfate 75 MG Tablet Take 1 tablet by mouth once daily for 30 days Nef-NpvzlxRdieqxcbybpld-Itgmycp 300-30 MG Tablet 1 tablet as needed Orally every 6 hrs Lisinopril 10 MG Tablet 1 tablet Orally Once a day Medication List reviewed and reconciled with the patientNot-Taking Acetaminophen-Codeine 300-30 MG Tablet 1 tablet as needed Orally every 6 hrs Not-Taking Lisinopril 10 MG Tablet 1 tablet Orally Once a day Medication List reviewed and reconciled with the patient * Allergies:?N.K.D.A.no[Allerg ies Verified] Objective: * Vitals:?Ht: 64 in, Wt:243lbs , Wt-k.22 kg, BMI:41.71Index, Temp:97.7F, BP:134/84mm Hg, HR:79/min, RR:20/min, Oxygen sat %:97%, Pain scale: 0 1-10, Ht- cm: 162.56 cm. * Examination: ???General Examination: ?GENERAL APPEARANCE:?alert, well hydrated, in no distress.?EYES:?PERRL; normal conjunctiva.?NECK/THYROID:?neck supple, full range of motion.?HEART:?regular rate and rhythm.?LUNGS:?clear anteriorly and posteriorly.?ABDOMEN:?soft, nontender, nondistended.?BACK:?no costovertebral angle tenderness.?MUSCULOSKELETAL:?normal gait.?PSYCH:?normal.? Assessment: * Assessment: 1.?BPH (benign prostatic hyp erplasia) - N40.0 (Primary)???2.?Screening PSA (prostate specific antigen) - Z12.5??? Plan: * Treatment: 2.?Screening PSA (prostate s pecific antigen)?LAB: PSA Medicare Screening--G0103 (Collection Date & Time - 11/27/2023 11:33 AM) ? Value Reference Range ?PSA 4.99 HI .00-4.00 - NG/M L * Ernestina Braxton 12/01/19 12:26:55 PM CDT > Elevated, refer to Urology.Myah Kelley 12/08/2023 03:09:20 PM CDT > spouse notifiedThis lab was reviewed by Myah Kelley on 12/08/2023 at 15:11 PM CDT * Procedure Codes:?3075F SYST BP GE 130 - 139MM [id number] DIAST BP 80-89 MM HG * Preventive Medicine:? ??Screenings:?COLORECTAL CANCER SCREENING:?Date of last colonoscopy?10/01/2023 ?DEPRESSION SCREENING:?The patient denies:?anxiety, depressed mood, difficulty sleeping, lack of energy, lack of interest in things that were enjoyable, poor appetite, sadness, thoughts of harming him/herself, thought of harming someone else, trouble concentrating, weight gain, weight loss, any depressive symptoms at this time ?Suicidal ideation:?has never been expressed/considered ?Homicidal ideation:?has never been expressed/considered ?Date of most recent screening:?04/15/2022 * Follow Up:?3 Months * Billing Information: * Visit Code:? 40676 Office Visit, Est Pt., Level 3. * Procedure Codes:? 3075F SYST BP GE 130 - 139MM HG. 3079F DIAST BP 80-89 MM HG. Care Plan Details* * Sign off status: Completed true * Provider:?Ernestina Braxton APRN Date: ?11/27/2023 Generated for Shauna montes/Adrián/eTransmitting on:?12/18/2023 08:31 AM CDT History and Physical Notes * Examination Category Sub-Category Detail Notes General Examination GENERAL APPEARANCE: alert, w ell hydrated, in no distress EYES: PERRL; normal conjun ctiva NECK/THYROID: neck supple, full ra nge of motion HEART: regular rate and rhy thm LUNGS: clear anteriorly and posteriorly ABDOMEN: soft, nontender, non distended BACK: no costovertebral an gle tenderness MUSCULOSKELETAL: normal gait PSYCH: normal
[2024-01-07 09:11] VITALS: BMI 39.9
[2024-01-07 09:19] VITALS: BP 135/84; PULSE 89; RESP 20; TEMP 36.4; O2SAT 96
--- NOTE | 2024-01-07 09:38 | P.ANESASSM_ITS ---
Pre-Anesthetic Assessment Height/Weight: Height 1.65 m Weight 108.862 kg Temp Pulse Resp BP Pulse Ox O2 Del Method 97.6 F 89 20 H 135/84 96 Room Air 01/07/24 09:19 01/07/24 09:19 01/07/24 09:19 01/07/24 09:19 01/07/24 09:19 01/07/24 09:19 Preop Diagnosis: screening Operation Date: 01/07/24 10:00 Proposed Procedures p Colonoscopy 14280, G0121, Z12.11(Not Applicable) - Jasbir Ward, DO Was Beta [place]og[place] taken within 24 hours: N/A Was Clonidine taken within 24 hours: N/A Last intake: Intake Last Liquid Date 01/06/24 Last Liquid Time 21:30 Last Solid Date 01/05/24 Last Solid Time 12:00 Social Alcohol (1 pint) and Tobacco (1 ppd) 1 pack(s) per day 20 plus pack years Exam alert and oriented x 3 Airway Submandibular: within normal limits Cervical ROM: within normal limits Mallampati: Class III Dentition: false (at home) History/ROS No significant history except as noted Pulmonary Chronic Obstructive Pulmonary Disease snores loud CV/HEM Hypertension and Myocardial Infarction (stent placed 1.5 year ago) None reported Hepatic fatty liver GI Gastroesophageal Reflux Disease Metabolic Thyroid Disease Musc/skel Weakness (neck problems; arthritis) Neuropsych None reported Anesthetic Plan ASA status: 3 Anesthesia: MAC Risk of > 500 ml blood loss (7ml/kg in children): No Medications/Allergies Home Medications Medication Instructions Recorded Confirmed Last Taken Type albuterol sulfate 90 mcg/actuation 2 puff inhalation QID PRN 08/13/22 01/05/24 01/06/24 History aerosol inhaler (Ventolin HFA) Shortness Of Breath potassium gluconate 595 mg (99 mg) 595 mg PO DAILY 08/13/22 01/05/24 01/04/24 History tablet aspirin 81 mg capsule 81 mg PO DAILY #30 caps 08/14/22 01/05/24 01/02/24 Rx atorvastatin 40 mg tablet 80 mg (2 x 40 mg) PO BEDTIME #30 08/14/22 01/05/24 01/04/24 Rx tabs clopidogrel 75 mg tablet 75 mg PO DAILY #30 tabs 08/14/22 01/05/24 01/02/24 Rx metoprolol tartrate 25 mg tablet 25 mg PO BID@0900,2100 #60 tabs 08/14/22 01/05/24 01/05/24 Rx pantoprazole 40 mg tablet,delayed 40 mg PO BID #60 tabs 08/14/22 01/05/24 01/05/24 Rx release amlodipine 5 mg tablet 5 mg PO QPM 11/01/22 01/05/24 01/04/24 History nitroglycerin 0.4 mg sublingual 0.4 mg sublingual Q5M PRN chest 04/07/23 01/05/24 Unknown Rx tablet pain #25 tabs naltrexone microspheres 380 mg 380 mg IM .monthly #1 ea 07/17/23 01/05/24 12/29/23 Rx intramuscular suspension,extended release (Vivitrol) fluticasone fur. 200 mcg-umeclid 1 inh inhalation DAILY 09/29/23 01/05/24 01/04/24 History 62.5 mcg-vilant 25 mcg inhalat.powder (Trelegy Ellipta) levothyroxine 50 mcg tablet 50 mcg PO DAILY 09/29/23 01/05/24 01/05/24 History naltrexone 50 mg tablet 50 mg PO DAILY PRN drug use 09/29/23 01/05/24 Unknown History trazodone 50 mg tablet 100 mg (2 x 50 mg) PO .HS PRN 10/23/23 01/05/24 Unknown Rx insomnia #60 tabs sildenafil 50 mg tablet 50 mg PO DAILY PRN sexual activity 11/12/23 01/05/24 Unknown Rx #30 tabs ipratropium 0.5 mg-albuterol 3 mg 3 ml inhalation BID PRN Shortness 01/05/24 01/05/24 01/02/24 History (2.5 mg base)/3 mL nebulization Of Breath Or Wheezing soln Allergies Allergy/AdvReac Type Severity Reaction Status Date / Time No Known Allergies Allergy Verified 01/05/24 10:53 [facility] Anesthesia Medical History Alcohol dependence Tobacco dependence with current use Smoker Post-traumatic arthritis of left ankle Pain in left ankle Post-traumatic arthritis of left foot Pancreatic mass Normal pancreatic tail parenchyma with lobulation. No neoplasm Psychiatric care Coronary artery disease Alcohol use Tobacco dependency Hypertension GERD (gastroesophageal reflux disease) Lumbar stenosis with neurogenic claudication Surgical History History of ankle surgery Family History Other Cancer Social History Smoking and tobacco/nicotine status: current every day tobacco/nicotine user cigarettes Packs smoked per day: 1 Years cigarettes smoked: 44 [ Other cigarette details: Started at age 13] Alcohol intake: current Substance/Drug Use: never Adopted: No Caregiver/support person: No Lives independently: No Household members: significant other Housing: House Number of children: 0 Number of grandchildren: 0 Highest education level completed: 10th Grade service: No Current occupational status: unemployed Pets and animals: Yes Pets & animals: dog(s) and bird(s) Leisure activites: other Leisure activities details: not really Sexually active: Yes Do you think of yourself as: Straight/Heterosexual Current gender identity: Male Special margie needs: No Agree to transfusion: Yes Data Anesthesia Cardiac Studies: Echocardiogram 05/19/23 Sestamibi Stress Test (Cardiology) 06/18
--- NOTE | 2024-01-07 09:48 | PM.HP ---
Providers/Chief Complaint Primary Care Provider: Ernestina Braxton APN Chief Complaint: Z12.11 History of Present Illness Dequan Perez is a 58 year old male Review of Systems General: Reports: 10 or more systems reviewed and unremarkable except in HPI and below Medications/Allergies Home Medications Medication Instructions Recorded Confirmed Last Taken Type albuterol sulfate 90 mcg/actuation 2 puff inhalation QID PRN 08/13/22 01/05/24 01/06/24 History aerosol inhaler (Ventolin HFA) Shortness Of Breath potassium gluconate 595 mg (99 mg) 595 mg PO DAILY 08/13/22 01/05/24 01/04/24 History tablet aspirin 81 mg capsule 81 mg PO DAILY #30 caps 08/14/22 01/05/24 01/02/24 Rx atorvastatin 40 mg tablet 80 mg (2 x 40 mg) PO BEDTIME #30 08/14/22 01/05/24 01/04/24 Rx tabs clopidogrel 75 mg tablet 75 mg PO DAILY #30 tabs 08/14/22 01/05/24 01/02/24 Rx metoprolol tartrate 25 mg tablet 25 mg PO BID@0900,2100 #60 tabs 08/14/22 01/05/24 01/05/24 Rx pantoprazole 40 mg tablet,delayed 40 mg PO BID #60 tabs 08/14/22 01/05/24 01/05/24 Rx release amlodipine 5 mg tablet 5 mg PO QPM 11/01/22 01/05/24 01/04/24 History nitroglycerin 0.4 mg sublingual 0.4 mg sublingual Q5M PRN chest 04/07/23 01/05/24 Unknown Rx tablet pain #25 tabs naltrexone microspheres 380 mg 380 mg IM .monthly #1 ea 07/17/23 01/05/24 12/29/23 Rx intramuscular suspension,extended release (Vivitrol) fluticasone fur. 200 mcg-umeclid 1 inh inhalation DAILY 09/29/23 01/05/24 01/04/24 History 62.5 mcg-vilant 25 mcg inhalat.powder (Trelegy Ellipta) levothyroxine 50 mcg tablet 50 mcg PO DAILY 09/29/23 01/05/24 01/05/24 History naltrexone 50 mg tablet 50 mg PO DAILY PRN drug use 09/29/23 01/05/24 Unknown History trazodone 50 mg tablet 100 mg (2 x 50 mg) PO .HS PRN 10/23/23 01/05/24 Unknown Rx insomnia #60 tabs sildenafil 50 mg tablet 50 mg PO DAILY PRN sexual activity 11/12/23 01/05/24 Unknown Rx #30 tabs ipratropium 0.5 mg-albuterol 3 mg 3 ml inhalation BID PRN Shortness 01/05/24 01/05/24 01/02/24 History (2.5 mg base)/3 mL nebulization Of Breath Or Wheezing soln Allergies Allergy/AdvReac Type Severity Reaction Status Date / Time No Known Allergies Allergy Verified 01/05/24 10:53 PFSH Acute PFSH: Medical History Alcohol dependence Tobacco dependence with current use Smoker Post-traumatic arthritis of left ankle Pain in left ankle Post-traumatic arthritis of left foot Pancreatic mass Normal pancreatic tail parenchyma with lobulation. No neoplasm Psychiatric care Coronary artery disease Alcohol use Tobacco dependency Hypertension GERD (gastroesophageal reflux disease) Lumbar stenosis with neurogenic claudication Surgical History History of ankle surgery Family History Other Cancer Social History Smoking and tobacco/nicotine status: current every day tobacco/nicotine user cigarettes Packs smoked per day: 1 Years cigarettes smoked: 44 [ Other cigarette details: Started at age 13] Alcohol intake: current Substance/Drug Use: never Adopted: No Caregiver/support person: No Lives independently: No Household members: significant other Housing: House Number of children: 0 Number of grandchildren: 0 Highest education level completed: 10th Grade service: No Current occupational status: unemployed Pets and animals: Yes Pets & animals: dog(s) and bird(s) Leisure activites: other Leisure activities details: not really Sexually active: Yes Do you think of yourself as: Straight/Heterosexual Current gender identity: Male Special margie needs: No Agree to transfusion: Yes Vitals/I&O/Wt Last Vital Signs Temp 97.6 F 01/07/24 09:19 Pulse 89 01/07/24 09:19 Resp 20 H 01/07/24 09:19 BP 135/84 01/07/24 09:19 Pulse Ox 96 01/07/24 09:19 O2 Del Method Room Air 01/07/24 09:19 Weight last 48 hrs Weight 240 lb A&P Assessment and plan (1) Colon cancer screening: Plan Colonoscopy Attestations Medical Necessity Statement*: Home Coding Level of Care Code Acute Code for Chg Fwd Diagnoses Colon cancer screening Z12.11
[2024-01-07] MEDS: sodium chloride 0.9% 1,000 ML 30 ML IV (10:10)
[2024-01-07 10:44] VITALS: BP 83/63; PULSE 74; RESP 16; TEMP 36.2; O2SAT 94
[2024-01-07 10:49] VITALS: BP 101/61; PULSE 87; RESP 18; O2SAT 97
--- NOTE | 2024-01-07 11:20 | ANE.PACU2 ---
Inpatient post-anesthesia follow up: Airway intact: Yes Vital signs: Temperature 97.2 F Pulse Rate 87 Respiratory Rate 18 Blood Pressure 101/61 Pulse Oximetry 97 Oxygen Delivery Me thod Nasal Cannula Oxygen Flow Rate 2 Fraction of Inspir ed Oxygen Hydration adequate: Yes Nausea and vomiting: No Pain level: 1 Mental status: Baseline
== END 2024-01-07 11:20 | disposition home or self-care (01) ==
PROVIDERS: PCP Nurse Practitioner Family; Visit Provider Surgery
PROC: 0DJD8ZZ Inspection of Lower Intestinal Tract, Via Natural or Artificial Opening Endoscopic (ICD-10-PCS; CPT 45378; principal; 2024-01-07 10:00)
DX: Z12.11 Encounter for screening for malignant neoplasm of colon (principal); D12.3 Benign neoplasm of transverse colon; K62.1 Rectal polyp; I10 Essential (primary) hypertension; Z79.82 Long term (current) use of aspirin; F17.210 Nicotine dependence, cigarettes, uncomplicated; K21.9 Gastro-esophageal reflux disease without esophagitis
CPT/HCPCS: 45385; 88305; J2704; J7030

== ENCOUNTER → 2024-04-13 09:22 | Outpatient (BNVA) | payer MEDICAID, SELFPAY ==
[2023-08-06 13:48] VITALS: BP 155/94; BMI 39.1
== END ==
PROVIDERS: PCP Family Medicine; Visit Provider Family Medicine
DX: I10 Essential (primary) hypertension (principal); I25.118 Atherosclerotic heart disease of native coronary artery with other forms of angina pectoris; K21.9 Gastro-esophageal reflux disease without esophagitis; K70.10 Alcoholic hepatitis without ascites; Z23 Encounter for immunization; Z86.19 Personal history of other infectious and parasitic diseases; J43.2 Centrilobular emphysema; F17.210 Nicotine dependence, cigarettes, uncomplicated; R73.03 Prediabetes; E66.01 Morbid (severe) obesity due to excess calories; Z68.41 Body mass index [BMI] 40.0-44.9, adult; K86.89 Other specified diseases of pancreas; K80.20 Calculus of gallbladder without cholecystitis without obstruction; Z76.89 Persons encountering health services in other specified circumstances; E87.6 Hypokalemia; N40.1 Benign prostatic hyperplasia with lower urinary tract symptoms; N13.8 Other obstructive and reflux uropathy; Z12.2 Encounter for screening for malignant neoplasm of respiratory organs
CPT/HCPCS: 80053; 82607; 85025

== ENCOUNTER → 2024-05-19 12:53 | Outpatient (BNVA) | payer MEDICAID, SELFPAY ==
[2024-05-03 09:09] VITALS: BP 155/94; BMI 39.1
== END ==
PROVIDERS: PCP Family Medicine; Visit Provider Internal Medicine
DX: I25.10 Atherosclerotic heart disease of native coronary artery without angina pectoris (principal); I10 Essential (primary) hypertension
CPT/HCPCS: 99214

== ENCOUNTER 2024-06-07 14:31 | Oncology outpatient (recurring) (ONCR) | payer MEDICAID, SELFPAY ==
[2024-05-03 09:09] VITALS: BP 155/94; BMI 39.1
--- NOTE | 2024-06-03 08:40 | N.ONRAD NP_ITS ---
Radiation Oncology New Patient Visit Patient: Dequan Perez MR#: [id number] : 1965> Age: 58> Sex: Male> Dictated by: Dr. Mary Jane Plascencia Date of Service: 06/02/2024 Referring Physician(s) : Dr. Og Diagnosis: Adenocarcinoma of the prostate Jaguar score 6, 7(3+4), 7(4+3) Radiotherapy to date: Summary > No prior radiation therapy. Chief Complaint / History of Present Illness: Patient is a 58-year-old gentleman who in November was found to have a PSA of 4.99. His prior PSA in April 2022 was 1.4. He subsequently was sent to urology and had a MRI and workup and in March had a biopsy. The biopsy showed adenocarcinoma the prostate Jaguar score 6 and 7. He was then referred for surgical evaluation. Secondary to his overall clinical health he was not considered a candidate for surgery. He has had a negative bone scan. He was started on Casodex. He is here today to discuss radiation as his only remaining option other than observation. His most recent PSA from today is 5.05. IPSS score is 23 Current Medications: albuterol sulfate 90 mcg/actuation (Ventolin HFA) 2 puffs inhalation QID PRN albuterol sulfate 2.5 mg (3 mL) inhalation Q4H PRN amlodipine 5 mg PO QPM aspirin 81 mg PO DAILY clopidogrel 75 mg PO DAILY vwssrvilzxc-hjtzulnga-tmfwdgbm 200-62.5-25 mcg (Trelegy Ellipta) 1 inh inhalation DAILY levothyroxine 50 mcg PO DAILY mecobalamin (vitamin B12) 1,000 mcg PO DAILY metoprolol tartrate 25 mg PO BID@0900,2100 nebulizers As Allergies: NKDA Medical History: PFTs done 03/01--small airways obstruction only; Prostate cancer??? Vitamin B12 deficiency (non anemic) Hypokalemia BPH w urinary obs/LUTS sees [facility]. [facility] urology--just had bx Screening for lung cancer last LDCT 10.03.23 Encounter for screening for lung cancer LDCT 10.03.23--repeat one year Alcoholic steatohepatitis Prediabetes Hx of hepatitis C reports tested pos for Hep C but further testing showed he cleared it on his own Alcohol dependence Tobacco dependence with current use Post-traumatic arthritis of left ankle Pain in left ankle Post-traumatic arthritis of left foot Pancreatic mass Normal pancreatic tail parenchyma with lobulation. No neoplasm Psychiatric care Coronary artery disease has stent Alcohol use Hypertension GERD (gastroesophageal reflux disease) Lumbar stenosis with neurogenic claudication Surgical History: Hx of colonoscopy with polypectomy 01.07.24 tubular adenoma; f/u 5 yrs Hx of prostate biopsy done at [place] 04/03; he has urologist there History of coronary artery stent placement 1 stent History of ankle surgery Left ankle Family History: CAD (coronary artery disease) Grandmother No problems noted. Mother Lung cancer Other Cancer Social History: CAD (coronary artery disease) Grandmother No problems noted. Mother Lung cancer Other Cancer Current Complaints / Review of Systems: . Vital Signs: Performed on 06/02/2024 1:11 PM BMI - 42.672 kg/m2 (high), Height - 64 in, Weight - 248.6 lbs, Temperature - 96.7 f, Pulse - 83 /min, Respiration - 22 /min (high), O2 Sat - 97 %, Pain - 0, Fatigue - 0 and BP - 144/ 89 mm(hg)(high/). Physical Exam: General: Patient is in apparent distress. He is accompanied by his . HEENT: Normocephalic atraumatic. Pupils are equal, sclera clear, extraocular muscles intact Pulmonary: Respiratory rate is regular nonlabored Cardiovascular: Regular rate and rhythm Abdomen: Patient's abdomen is markedly protuberant and android pattern Extremities: Without obvious edema or lymphedema Skin: Warm and dry Neurological: Alert and orient x 3. Gait and speech within normal limits Psych: Affect appropriate for current situation Performance Status: 100 Pathology: Lab: Imaging: See HPI Impression: Adenocarcinoma the prostate [place] score 6 and 7, PSA 5.05, highest was 5.66 Plan: I reviewed with the patient and his the different things that we look at when were determining the best possible treatment for patient. We discussed his PSA and his Jaguar score. We talked about how his bone scan was negative. We reviewed the radiation as a treatment option. We discussed the simulation process. We reviewed the daily treatment regiment. We discussed the risks and side effects both acute and long-term. After some discussion and answering all of his questions as well as her questions he and she have both agreed that this is the best option for him. He is anxious to get started. With the system that we have here in [place] fiducials are no longer required as we do a daily CT scan for image guidance. We did talk about a SpaceO[employer] and at this point he said he does not want any more interventions. Will have him return shortly to undergo simulation and begin his treatment shortly thereafter. Plan for a 5 and half week course of treatment. Signed by: 06/03/2024 8:40:14 AM <<Signature on File>> Time spent on patient: 45 CPT Code: * CPT Code: *
== END 2024-06-07 23:59 | disposition home or self-care (01) ==
PROVIDERS: PCP Family Medicine; Visit Provider Radiology Radiation Oncology
DX: Z51.0 Encounter for antineoplastic radiation therapy (principal); C61 Malignant neoplasm of prostate
CPT/HCPCS: 36415; 77334; 77470; 84153; 99205

== ENCOUNTER 2024-06-22 10:31 | Oncology outpatient (recurring) (ONCR) | payer MEDICAID, SELFPAY ==
[2024-05-03 09:09] VITALS: BP 155/94; BMI 39.1
--- NOTE | 2024-06-15 15:03 | ONCRAD TMN_ITS ---
Radiation Oncology Weekly Treatment Management Patient: Dequan Perez MR#: [id number] : 1965 Attending Physician: Dr. Dany Santana Date of Service: 06/15/2024 Referring Physician(s) : Diagnosis: C61 - Malignant neoplasm of prostate, Diagnosed 06/07/2024 (Active) Radiotherapy to date: Course: prostate, Treatment Site: Prostate/SV, Ref. ID: [id number], Energy: 15X, Dose/Fx (cGy): 250, #Fx: , Dose Correction (cGy): 0, Total Dose Delivered (cGy): 1,250, Start Date: 06/09/2024, Elapsed Days: 6 Reason for visit: The patient is being seen today as part of their regularly scheduled weekly on treatment visits to assess for acute toxicities from radiotherapy. Review of Systems: Urination is a bit better. Less nocturia from 4 to5 nowonly 2 x at night. Still smoking 15 cigs a day. Not active at home. Vital Signs: Performed on 06/15/2024 1:32 PM BMI - 42.707 kg/m2 (high), Height - 64 in, Weight - 248.8 lbs, Temperature - 97.4 f, Pulse - 86 /min, Respiration - 16 /min, O2 Sat - 96 %, Pain - 0, Fatigue - 0 and BP - 126/ 85 mm(hg). Physical Exam: Imaging: Radiation therapy imaging related to accurate target localization (i.e. KV, MV and CBCT) was reviewed. Appropriate changes, if any, were made to ensure treatment accuracy. Plan: good tolerance of treatment. Continue as planned. Signed by: Dr. Dany Santana 06/15/2024 3:01:58 PM
--- NOTE | 2024-06-22 11:04 | ONCRAD TMN_ITS ---
Radiation Oncology Weekly Treatment Management Patient: Ana Lauren MR#: [id number] : 1965> Attending Physician: Jose Mooney Date of Service: 06/22/2024 Referring Physician(s) : Diagnosis: C61 - Malignant neoplasm of prostate, Diagnosed 06/07/2024 (Active) Radiotherapy to date: Course: prostate, Treatment Site: Prostate/SV, Ref. ID: [id number], Energy: 15X, Dose/Fx (cGy): 250, #Fx: , Dose Correction (cGy): 0, Total Dose Delivered (cGy): 2,500, Start Date: 06/09/2024, Elapsed Days: 13 Reason for visit: The patient is being seen today as part of their regularly scheduled weekly on treatment visits to assess for acute toxicities from radiotherapy. Review of Systems: Nocturia x 2 which is better than when he started. Patient denies any blood in the urine, blood in the stool, diarrhea, constipation, or new bony tenderness. He continues to smoke between a half and three quarters of a pack of cigarettes per day. Vital Signs: Performed on 06/22/2024 10:11 AM BMI - 43.187 kg/m2 (high), Height - 64 in, Weight - 251.6 lbs, Temperature - 97.6 f, Pulse - 85 /min, Respiration - 18 /min, O2 Sat - 96 %, Pain - 0, Fatigue - 2 and BP - 158/ 105 mm(hg)(high). Physical Exam: AAOx3. Skin intact Imaging: Radiation therapy imaging related to accurate target localization (i.e. KV, MV and CBCT) was reviewed. Appropriate changes, if any, were made to ensure treatment accuracy. Plan: Continue XRT Signed by: Jose Mooney 06/22/2024 11:03:11 AM
== END 2024-06-22 23:59 | disposition home or self-care (01) ==
PROVIDERS: PCP Family Medicine; Visit Provider Radiology Radiation Oncology
DX: Z51.0 Encounter for antineoplastic radiation therapy (principal); C61 Malignant neoplasm of prostate
CPT/HCPCS: 77300; 77301; 77336; 77338; 77385; 99024

== ENCOUNTER 2024-07-07 10:24 | Oncology outpatient (recurring) (ONCR) | payer MEDICAID, SELFPAY ==
[2024-05-03 09:09] VITALS: BP 155/94; BMI 39.1
--- NOTE | 2024-06-29 16:33 | ONCRAD TMN_ITS ---
Radiation Oncology Weekly Treatment Management Patient: Dequan Perez MR#: [id number] : 1965 Attending Physician: Dr. Dany Santana Date of Service: 06/29/2024 Referring Physician(s) : Diagnosis: C61 - Malignant neoplasm of prostate, Diagnosed 06/07/2024 (Active) Radiotherapy to date: Course: prostate, Treatment Site: Prostate/SV, Ref. ID: [id number], Energy: 15X, Dose/Fx (cGy): 250, #Fx: , Dose Correction (cGy): 0, Total Dose Delivered (cGy): 3,750, Start Date: 06/09/2024, Elapsed Days: 20 Reason for visit: The patient is being seen today as part of their regularly scheduled weekly on treatment visits to assess for acute toxicities from radiotherapy. Review of Systems: On Flomax BID. Stable flow. 1 x nocturia. No pain . Fair flow. Still smoking. Bowels ok. Not real active. Vital Signs: Performed on 06/29/2024 10:44 AM BMI - 43.05 kg/m2 (high), Height - 64 in, Weight - 250.8 lbs, Temperature - 97.4 f, Pulse - 87 /min, Respiration - 20 /min, O2 Sat - 94 % (low), Pain - 0, Fatigue - 0 and BP - 140/ 91 mm(hg)(/high). Physical Exam: Imaging: Radiation therapy imaging related to accurate target localization (i.e. KV, MV and CBCT) was reviewed. Appropriate changes, if any, were made to ensure treatment accuracy. Plan: Good tolerance of treatment. Continue as planned. Begged him to quit smoking. Signed by: Dr. Dany Santana 06/29/2024 4:32:10 PM
--- NOTE | 2024-07-06 11:04 | ONCRAD TMN_ITS ---
Radiation Oncology Weekly Treatment Management Patient: Ana Lauren MR#: [id number] : 1965> Attending Physician: Jose Mooney Date of Service: 07/06/2024 Referring Physician(s) : Diagnosis: C61 - Malignant neoplasm of prostate, Diagnosed 06/07/2024 (Active) Radiotherapy to date: Course: prostate, Treatment Site: Prostate/SV, Ref. ID: [id number], Energy: 15X, Dose/Fx (cGy): 250, #Fx: , Dose Correction (cGy): 0, Total Dose Delivered (cGy): 5,000, Start Date: 06/09/2024, Elapsed Days: 27 Reason for visit: The patient is being seen today as part of their regularly scheduled weekly on treatment visits to assess for acute toxicities from radiotherapy. Review of Systems: Patient denies any blood in the urine, blood in the stool, constipation, or new bony tenderness. Patient does admit to some mild diarrhea but has not taken any medicine at this time. He continues to smoke. Flomax has been helpful. Vital Signs: Performed on 07/06/2024 10:42 AM BMI - 43.256 kg/m2 (high), Height - 64 in, Weight - 252 lbs, Temperature - 97.4 f, Pulse - 83 /min, Respiration - 18 /min, O2 Sat - 96 %, Pain - 0, Fatigue - 0 and BP - 137/ 92 mm(hg)(/high). Physical Exam: AAOx3. Skin intact. Imaging: Radiation therapy imaging related to accurate target localization (i.e. KV, MV and CBCT) was reviewed. Appropriate changes, if any, were made to ensure treatment accuracy. Plan: Continue XRT. Signed by: Jose Mooney 07/06/2024 11:03:14 AM
== END 2024-07-07 23:59 | disposition home or self-care (01) ==
PROVIDERS: PCP Family Medicine; Visit Provider Radiology Radiation Oncology
DX: Z51.0 Encounter for antineoplastic radiation therapy (principal); C61 Malignant neoplasm of prostate
CPT/HCPCS: 77336; 77385; 99024

== ENCOUNTER 2024-07-16 10:21 | Oncology outpatient (recurring) (ONCR) | payer MEDICAID, SELFPAY ==
[2024-05-03 09:09] VITALS: BP 155/94; BMI 39.1
--- NOTE | 2024-07-12 11:00 | ONCRAD TMN_ITS ---
Radiation Oncology Weekly Treatment Management Patient: Dequan Perez MR#: [id number] : 1965 Attending Physician: Jose Mooney Date of Service: 07/12/2024 Referring Physician(s) : Diagnosis: C61 - Malignant neoplasm of prostate, Diagnosed 06/07/2024 (Active) Radiotherapy to date: Course: prostate, Treatment Site: Prostate/SV, Ref. ID: [id number], Energy: 15X, Dose/Fx (cGy): 250, #Fx: , Dose Correction (cGy): 0, Total Dose Delivered (cGy): 6,000, Start Date: , End Date: 07/12/2024 Elapsed Days: 33 Reason for visit: The patient is being seen today as part of their regularly scheduled weekly on treatment visits to assess for acute toxicities from radiotherapy. Review of Systems: AAOx3 Skin intact . C/O Diarrhea Vital Signs: Performed on 07/12/2024 10:38 AM BMI - 42.947 kg/m2 (high), Height - 64 in, Weight - 250.2 lbs, Temperature - 97 f, Pulse - 94 /min, Respiration - 18 /min, O2 Sat - 96 %, Pain - 0, Fatigue - 0 and BP - 123/ 85 mm(hg). Physical Exam: AAox3. Skin intact Imaging: Radiation therapy imaging related to accurate target localization (i.e. KV, MV and CBCT) was reviewed. Appropriate changes, if any, were made to ensure treatment accuracy. Plan: Cont XRT Full Bladder needed before XRT. Signed by: Jose Mooney 07/12/2024 10:58:56 AM
[2024-07-12 11:44] LABS: Estmated Average Glucose 120; Hemoglobin A1C 5.8 % (4.0-6.0)
[2024-07-12 11:46] LABS: Chol HDL Ratio 3.77 mg/dL (1.0-5.00); Cholesterol 162 mg/dL (0-200); HDL Cholesterol 43 mg/dL (60-100); LDL Cholesterol Calculated 67 mg/dL (50-129); LDL HDL Ratio 1.56 RATIO (0.00-3.22); Triglycerides 262 mg/dL (0-150)
[2024-07-12 12:13] LABS: Folate Level 7.5 ng/mL (4.5-32.2)
== END 2024-08-07 23:59 | disposition home or self-care (01) ==
PROVIDERS: Nurse Practitioner Psychiatric/Mental Health; Urology; PCP Family Medicine; Visit Provider Radiology Radiation Oncology
DX: Z51.0 Encounter for antineoplastic radiation therapy (principal); C61 Malignant neoplasm of prostate
CPT/HCPCS: 36415; 77336; 77385; 80061; 82746; 83036; 84153; 99024

== ENCOUNTER 2024-08-18 10:52 | Oncology outpatient (recurring) (ONCR) | payer MEDICAID, SELFPAY ==
[2024-07-15 16:46] VITALS: BP 142/93; BMI 41.9
--- NOTE | 2024-08-18 11:49 | ONCRAD EPV_ITS ---
Radiation Oncology Established Patient Visit Patient: Ana Baires [id number] : 1965> Age: 59> Sex: Male> Dictated by: Dr. Dany Santana Date of Service: 08/18/2024 Referring Physician(s) : Dr. Og Diagnosis: C61 - Malignant neoplasm of prostate, Diagnosed 06/07/2024 (Active) Radiotherapy to Date: Course: prostate, Treatment Site: Prostate/SV, Ref. ID: [id number], Energy: 15X, Dose/Fx (cGy): 250, #Fx: , Dose Correction (cGy): 0, Total Dose Delivered (cGy): 7,000, Start Date: 06/09/2024, End Date: 07/16/2024, Elapsed Days: 37 Now on ADT Current History: Urinary frequency improved with nocturia decreasing from 3 to 4 now to 1 to 2. Variable flow which can be weak. No Pain. Loose stools 1 to 3 x a day . Uses occasional Imodium. Still smoking now less than before at ??? ppd. He will see Dr. Og with ADT in [place] in 6 weeks. PSA prior to treatment and now at Dr. Og???s office 0.28 Current Medications Allergies: Current Complaints / Review of Systems: . Vital Signs: Performed on 08/18/2024 11:11 AM BMI - 42.775 kg/m2 (high), Height - 64 in, Weight - 249.2 lbs, Temperature - 97.2 f, Pulse - 79 /min, Respiration - 18 /min, O2 Sat - 94 % (low), Pain - 0, Fatigue - 0 and BP - 143/ 91 mm(hg)(high). Physical Exam: General: Alert and oriented x 3. No acute distress. Obese older appearing than age. Rectal exam omitted Performance Status: Lab: PSA 07/12/2024 0.28 Pathology: Primary, c61 - malignant neoplasm of prostate, Diagnosed 06/07/2024 (active) . Impression: St IIB(T1C, N0, M0) G 2 adenocarcinoma of prostate doing well post treatment. Will increase tamsulosin to 0.4 mg BID. He will now see Dr. Og for ongoing follow-up. Begged him to quit smoking. Signed by: 08/18/2024 11:48:11 AM <<Signature on File>> Time spent with patient: CPT Code: CPT Code:
== END 2024-09-06 23:59 | disposition home or self-care (01) ==
PROVIDERS: PCP Family Medicine; Visit Provider Radiology Radiation Oncology
DX: Z08 Encounter for follow-up examination after completed treatment for malignant neoplasm (principal); C61 Malignant neoplasm of prostate; F17.210 Nicotine dependence, cigarettes, uncomplicated; R30.0 Dysuria; R35.81 Nocturnal polyuria; R39.12 Poor urinary stream; E66.9 Obesity, unspecified; Z68.41 Body mass index [BMI] 40.0-44.9, adult; R19.7 Diarrhea, unspecified; Z92.3 Personal history of irradiation
CPT/HCPCS: 99024

== ENCOUNTER → 2024-09-20 13:07 | Outpatient (BNVA) | payer MEDICAID, SELFPAY ==
[2024-07-15 16:46] VITALS: BP 142/93; BMI 41.9
== END ==
PROVIDERS: PCP Family Medicine; Visit Provider Emergency Medicine
DX: R06.02 Shortness of breath (principal)
CPT/HCPCS: 87426

== ENCOUNTER 2024-09-29 09:31 | Outpatient (CLI) | payer MEDICAID, SELFPAY ==
[2024-07-15 16:46] VITALS: BP 142/93; BMI 41.9
[2024-09-29 10:36] LABS: Hematocrit 41.1 % (37-53); Hemoglobin 14.50 g/dL (11.27-16.99); Mean Corpuscular HGB Conc 35.3 g/dL (30-55); Mean Corpuscular Hemoglobin 36.3 pg (27-33); Mean Corpuscular Volume 103.0 fl (82-101); Nucleated Red Blood Cells % 0 %; Platelet Count 234 10^3/cmm (157-399); Red Blood Count 3.99 10^6/uL (3.85-5.65); White Blood Count 4.78 10^3/uL (3.29-11.43)
[2024-09-29 11:23] LABS: Prostate Specific Antigen < 0.014 ng/mL (0-4)
== END 2024-09-29 09:32 | disposition home or self-care (01) ==
PROVIDERS: PCP Family Medicine; Visit Provider Urology
DX: I10 Essential (primary) hypertension (principal); I25.118 Atherosclerotic heart disease of native coronary artery with other forms of angina pectoris; K21.9 Gastro-esophageal reflux disease without esophagitis; K70.10 Alcoholic hepatitis without ascites; C61 Malignant neoplasm of prostate
CPT/HCPCS: 36415; 84153; 85025

== ENCOUNTER 2024-10-28 12:10 | Outpatient (CLI) | payer MEDICAID, SELFPAY ==
[2024-07-15 16:46] VITALS: BP 142/93; BMI 41.9
--- NOTE | 2024-10-28 12:15 | CT_ITS ---
WS: [id number] LDCT LUNG CANCER SCREENING HISTORY: smoker; screening; >48pk yr TECHNIQUE: Axial imaging performed from the apices to 1 cm below the costophrenic angles. Coronal and sagittal reformats are submitted with axial MIP series. All CT scans at [facility] use at least one of these dose optimization techniques: automated exposure control; mA and/or kV adjustment per patient size (includes targeted exams where dose is matched to clinical indication); or iterative reconstruction. DLP: 139.01 mGy.cm DIvol: Mean CTDIvol: 3.20 (mGy) COMPARISON: 10/03/2023 Diagnostic quality: Satisfactory Lungs: Small thin-walled cavitation or cyst at the LEFT lung base measures 9 mm. No pulmonary mass, nodule or pneumonia. No endobronchial lesions. Heart: Normal size heart with no pericardial effusion.. Increased fat along the intra-atrial septum. Other findings: No pathologically enlarged mediastinal or hilar lymph nodes. Mild atherosclerosis aorta. Bilateral mild gynecomastia. Small hiatal hernia. Hepatic steatosis. Cholelithiasis. Normal adrenal glands. Previously described LEFT adrenal gland nodule is not really identified on today's exam. CT/CT lung screening [id number] IMPRESSION: LUNG-RADS: 2-Benign Appearance or Behavior FOLLOW UP: 12 Month: Continue annual screening with LDCT OTHER FINDINGS (S MODIFIER): None.
== END 2024-10-28 12:11 | disposition home or self-care (01) ==
LOC: RAD 12:10
PROVIDERS: PCP Family Medicine; Visit Provider Family Medicine
DX: Z12.2 Encounter for screening for malignant neoplasm of respiratory organs (principal); F17.210 Nicotine dependence, cigarettes, uncomplicated
CPT/HCPCS: 71271

== ENCOUNTER → 2024-11-23 09:54 | Outpatient (BNVA) | payer MEDICAID, SELFPAY ==
[2024-07-15 16:46] VITALS: BP 142/93; BMI 41.9
== END ==
PROVIDERS: PCP Family Medicine; Visit Provider Internal Medicine
DX: J44.89 Other specified chronic obstructive pulmonary disease (principal); F17.210 Nicotine dependence, cigarettes, uncomplicated
CPT/HCPCS: 99214

== ENCOUNTER → 2024-11-24 12:41 | Outpatient (BNVA) | payer MEDICAID, SELFPAY ==
[2024-07-15 16:46] VITALS: BP 142/93; BMI 41.9
== END ==
PROVIDERS: PCP Family Medicine; Visit Provider Internal Medicine
DX: I25.10 Atherosclerotic heart disease of native coronary artery without angina pectoris (principal); I10 Essential (primary) hypertension; F17.210 Nicotine dependence, cigarettes, uncomplicated
CPT/HCPCS: 99213

== ENCOUNTER → 2024-12-20 09:24 | Outpatient (BNVA) | payer MEDICAID, SELFPAY ==
[2024-07-15 16:46] VITALS: BP 142/93; BMI 41.9
== END ==
PROVIDERS: PCP Family Medicine; Visit Provider Internal Medicine
DX: J44.89 Other specified chronic obstructive pulmonary disease (principal); Z71.6 Tobacco abuse counseling; F17.210 Nicotine dependence, cigarettes, uncomplicated; G47.33 Obstructive sleep apnea (adult) (pediatric)
CPT/HCPCS: 99214; 99406; Q3014

== ENCOUNTER → 2025-02-14 14:44 | Outpatient (BNVA) | payer MEDICAID, SELFPAY ==
[2024-07-15 16:46] VITALS: BP 142/93; BMI 41.9
== END ==
PROVIDERS: PCP Family Medicine; Visit Provider Family Medicine
DX: E03.9 Hypothyroidism, unspecified (principal)
CPT/HCPCS: 84439; 84443

== ENCOUNTER 2025-02-15 13:59 | Outpatient (CLI) | payer MEDICAID, SELFPAY ==
[2024-07-15 16:46] VITALS: BP 142/93; BMI 41.9
== END 2025-02-15 14:00 | disposition home or self-care (01) ==
LOC: SLEEP 14:01
PROVIDERS: PCP Family Medicine; Referring Provider Internal Medicine; Visit Provider Internal Medicine Pulmonary Disease
DX: G47.33 Obstructive sleep apnea (adult) (pediatric) (principal)
CPT/HCPCS: G0399

== ENCOUNTER → 2025-02-22 08:56 | Outpatient (BNVA) | payer MEDICAID, SELFPAY ==
[2024-07-15 16:46] VITALS: BP 142/93; BMI 41.9
== END ==
PROVIDERS: PCP Family Medicine; Visit Provider Internal Medicine
DX: J44.89 Other specified chronic obstructive pulmonary disease (principal); G47.33 Obstructive sleep apnea (adult) (pediatric); T78.40XA Allergy, unspecified, initial encounter; X58.XXXA Exposure to other specified factors, initial encounter; F17.210 Nicotine dependence, cigarettes, uncomplicated; J43.9 Emphysema, unspecified
CPT/HCPCS: 99214